=== PATIENT | female | born 1935 | race Caucasian/White ===

== ENCOUNTER → 2017-02-05 | Outpatient (CLI) | payer MEDICARE ==
[~2017-02-05] MED LIST: AMIT10TA6 PO; CITA10SO PO; ESTR0.3T PO; FAMO-119 PO; HYDR-3730 PO; LISI1TAB10 PO; LISI1TAB6 PO; NF-ESOM40C PO; SCR1T1 PO; SUCR1TAB36 PO
--- NOTE | 2017-02-06 09:18 | Diagnostic Imaging Report ---
EXAMINATION: Bilateral screening mammogram 2D views with tomosynthesis. The current study was also evaluated with a Computer Aided Detection (CAD) system. INDICATION: Screening. PERSONAL HISTORY: No current complaints stated on the questionnaire. COMPARISON: 02/28/2015. FINDINGS: The breasts are composed of heterogeneously dense parenchyma which may decrease mammographic sensitivity. Occasional benign-appearing calcifications are seen. Allowing for technique and positional differences, no suspicious change is seen. IMPRESSION: No significant change. ACR BI-RADS Category 2: Benign findings. Result letter will be mailed to the patient. Note: At least 10% of breast cancer is not imaged by mammography. Dictated by: Dictated on workstation # [id number]
== END ==
LOC: RAD 10:50
PROVIDERS: ATTEND Internal Medicine
DX: Z12.31 Encounter for screening mammogram for malignant neoplasm of breast (principal)

== ENCOUNTER → 2018-05-17 | Outpatient (CLI) | payer MEDICARE ==
[~2018-05-17] MED LIST changes: +HOLD METFORMIN - RECEIVED CONTRAST 20 ML VIAL IV SCH; +IOHEXOL 350 MG/ML 100 ML (OMNIPAQUE 350) VIAL IV ONE
[2018-05-17 16:42] LABS: CREATININE SERUM 1.11 MG/DL (0.60-1.30)
--- NOTE | 2018-05-17 17:53 | Diagnostic Imaging Report ---
PROCEDURE: CT neck soft tissue with contrast. TECHNIQUE: Multiple contiguous axial images were obtained through the neck after the administration of contrast. Auto Exposure Controls were utilized during the CT exam to meet ALARA standards for radiation dose reduction. INDICATION: Left neck mass. BB marker was placed over the area of concern. FINDINGS: Good opacification of the cervical vessels following IV contrast with mild calcification in the carotid bulbs. BB marker is placed over the left submandibular region. This does correlate with the left submandibular gland which is slightly larger than the right. There are no enhancing masses. No calculi are seen. The duct is not distended. There is enhancement in a rather uniform fashion. Right submandibular gland is normal. The parotid glands appear normal bilaterally. No evidence of cervical chain adenopathy of pathologic size. The strap muscles appear normal with good preservation of tissue planes throughout the neck. The parapharyngeal tissue planes appear normal. Nasopharynx and oropharynx are normal. Hypopharynx is normal. There are bilateral thyroid nodules. There are some mild inflammatory changes noted of the paranasal sinuses. IMPRESSION: 1. The BB marker on the left correlates with enlarged left submandibular gland. No masses or calculi are seen. 2. Bilateral thyroid nodules. Dictated by: Dictated on workstation # [id number]
== END ==
LOC: RAD 16:12
PROVIDERS: ATTEND Otolaryngology Otolaryngology/Facial Plastic Surgery
DX: E04.2 Nontoxic multinodular goiter (principal); K11.8 Other diseases of salivary glands
CPT/HCPCS: 36415; 70491; 82565; 84520

== ENCOUNTER 2018-07-15 14:46 | Inpatient (IN) | payer MEDICARE ==
[2018-07-15] VITALS (7 sets, daily range): BP systolic 97–147; BP diastolic 42–98
[~2018-07-15] VITALS: Ht 160 cm; Wt 74.0 kg
[~2018-07-15 14:46] MED LIST changes: -HOLD METFORMIN - RECEIVED CONTRAST 20 ML VIAL IV SCH; -IOHEXOL 350 MG/ML 100 ML (OMNIPAQUE 350) VIAL IV ONE
[2018-07-15] MEDS ORDERED: ASPIRIN 81 MG CHEW (CHILDREN'S ASA) PO ONE (15:00)
[2018-07-15] MEDS ORDERED: NS IV 500 ML 500 ML ONE (15:01)
[2018-07-15 15:15] LABS: BASOPHILS # (AUTO) 0.1 10^3/uL (0.0-0.1); BASOPHILS % (AUTO) 1 % (0-10); EOSINOPHILS # (AUTO) 0.5 10^3/uL (0.0-0.3); EOSINOPHILS % (AUTO) 6 % (0-10); HEMATOCRIT 47 % (35-52); LYMPHOCYTES # (AUTO) 3.1 X 10^3 (1.0-4.0); LYMPHOCYTES % (AUTO) 35 % (12-44); MEAN CORPUSCULAR HEMOGLOBIN 32 PG (25-34); MEAN CORPUSCULAR HGB CONC 34 G/DL (32-36); MEAN CORPUSCULAR VOLUME 92 FL (80-99); MEAN PLATELET VOLUME 9.1 FL (7.4-10.4); MONOCYTES # (AUTO) 0.8 X 10^3 (0.0-1.0); MONOCYTES % (AUTO) 9 % (0-12); NEUTROPHILS # (AUTO) 4.3 X 10^3 (1.8-7.8); NEUTROPHILS % (AUTO) 49 % (42-75); PLATELET COUNT 250 10^3/uL (130-400); RED CELL DISTRIBUTION WIDTH 13.4 % (10.0-14.5); WHITE BLOOD COUNT 8.7 10^3/uL (4.3-11.0)
[2018-07-15] MEDS ORDERED: DILTIAZEM IV FOR DRIP 125 MG in NS (IVPB) 100 ML IV SCH (15:15)
[2018-07-15] MEDS ORDERED: DILTIAZEM 25 MG/5 ML INJ (CARDIZEM) VIAL IVP ONE (15:15)
--- NOTE | 2018-07-15 15:22 | Diagnostic Imaging Report ---
PATIENT HISTORY: Chest tightness, nausea. TECHNIQUE: Single frontal view of the chest. COMPARISON: None. FINDINGS: The lung volumes are normal. No focal consolidation is seen. No large pleural effusion or pneumothorax is seen. The cardiomediastinal silhouette is normal in size and contour. No acute osseous abnormality is seen. IMPRESSION: No acute pulmonary abnormality seen. Dictated by: Dictated on workstation # [id number]
[2018-07-15] MEDS ORDERED: NS IV 500 ML 500 ML IV ONE (15:29)
--- NOTE | 2018-07-15 15:29 | ED Cardiac General ---
History of Present Illness General Chief Complaint: Cardiac/General Problems Stated Complaint: CHEST TIGHTNESS;NAUSEA;WEAKNESS Source: patient Exam Limitations: no limitations History of Present Illness Date Seen by Provider: July 15, 2018 Time Seen by Provider: 15:05 Initial Comments Here with report of chest tightness and anxious feeling with fast heart rate. Onset early this morning. Blood pressures were okay at home but they did note that her heart rate was in the 120s. A little short of breath but no sweating, nausea, vomiting or other problems. Timing/Duration: 12 hours Severity: mild Location: central (tightness) Activities at Onset: rest Prior CP/Workup: no prior chest pain Modifying Factors: improves with rest NTG SL FRAME TRIMMER: No ASA po FRAME TRIMMER: No Associated Systoms: Chest Pain; No Cough, No Diaphoresis, No Fever/Chills, No Nausea/Vomiting, No Shortness of Air, No Weakness Allergies and Home Medications Allergies Coded Allergies: No Known Drug Allergies (Unverified , 01/02/16) Home Medications Lisinopril/Hydrochlorothiazide 1 Each Tablet, 0.5 EACH PO DAILY, (Reported) Patient Home Medication List Home Medication List Reviewed: Yes Review of Systems Review of Systems Constitutional: see HPI; No chills, No fever EENTM: No Symptoms Reported Respiratory: See HPI Cardiovascular: See HPI, Irregular Heart Rate, Palpitations; Denies Syncope Gastrointestinal: No Symptoms Reported Genitourinary: No Symptoms Reported Musculoskeletal: no symptoms reported All Other Systems Reviewed Negative Unless Noted: Yes Past Vjpopka-Nhyldn-Dvrqeb Hx Past Med/Social Hx: Reviewed Nursing Past Med/Soc Hx Patient Social History Alcohol Use: Regular Use Number of Drinks Today: 0 Recreational Drug Use: No Smoking Status: Former Smoker Former Smoker, Quit: Jan 01, 1985 Recent Hopitalizations: No Immunizations Up To Date Date of Pneumonia Vaccine: Jan 07, 2012 Seasonal Allergies Seasonal Allergies: Yes Past Medical History Surgeries: Yes Adenoidectomy, Gallbladder, Hysterectomy, Tonsillectomy Respiratory: No Cardiac: Yes Hypertension Neurological: No 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 Sexually Transmitted Disease: No HIV/AIDS: No Genitourinary: No Gastrointestinal: Yes (HIATAL HERNIA) Gastroesophageal Reflux Musculoskeletal: Yes Chronic Back Pain Endocrine: No Loss of Vision: Bilateral Hearing Impairment: Denies Cancer: No Psychosocial: Yes (MILD) Anxiety Integumentary: No Blood Disorders: Yes (ANEMIA) Adverse Reaction/Blood Tranf: No Family Medical History Reviewed Nursing Family Hx No Pertinent Family Hx Physical Exam Vital Signs Vital Signs - First Documented 07/15/18 07/15/18 14:50 15:57 Temp 98.0 Pulse 128 Resp 18 B/P (MAP) 170/120 (137) Pulse Ox 94 O2 Delivery Room Air Capillary Refill : Less Than 3 Seconds Height, Weight, BMI Height: 5'4.00" Weight: 171lbs. 5.0oz. 77.706505va; 29.4 BMI Method: General Appearance: No Apparent Distress, WD/WN HEENT: PERRL/EOMI, Pharynx Normal Neck: Non Tender, Supple Respiratory: Lungs Clear, Normal Breath Sounds Cardiovascular: Irregularly Irregular, Tachycardia Gastrointestinal: Non Tender, Soft Extremity: Normal Range of Motion, Non Tender Neurologic/Psychiatric: Alert, Oriented x3 Skin: Normal Color, Warm/Dry Progress/Results/Core Measures Results/Orders Lab Results Laboratory Tests Test 07/15/18 15:05 07/15/18 15:25 Range/Units White Blood Count 8.7 4.3-11.0 10^3/uL Red Blood Count 5.07 4.35-5.85 10^6/uL Hemoglobin 16.0 11.5-16.0 G/DL Hematocrit 47 35-52 % Mean Corpuscular Volume 92 80-99 FL Mean Corpuscular Hemoglobin 32 25-34 PG Mean Corpuscular Hemoglobin Concent 34 32-36 G/DL Red Cell Distribution Width 13.4 10.0-14.5 % Platelet Count 250 130-400 10^3/uL Mean Platelet Volume 9.1 7.4-10.4 FL Neutrophils (%) (Auto) 49 42-75 % Lymphocytes (%) (Auto) 35 12-44 % Monocytes (%) (Auto) 9 0-12 % Eosinophils (%) (Auto) 6 0-10 % Basophils (%) (Auto) 1 0-10 % Neutrophils # (Auto) 4.3 1.8-7.8 X 10^3 Lymphocytes # (Auto) 3.1 1.0-4.0 X 10^3 Monocytes # (Auto) 0.8 0.0-1.0 X 10^3 Eosinophils # (Auto) 0.5 H 0.0-0.3 10^3/uL Basophils # (Auto) 0.1 0.0-0.1 10^3/uL Prothrombin Time 13.1 12.2-14.7 SEC INR Comment 1.0 0.8-1.4 Activated Partial Thromboplast Time 30 24-35 SEC Sodium Level 141 135-145 MMOL/L Potassium Level 4.2 3.6-5.0 MMOL/L Chloride Level 107 98-107 MMOL/L Carbon Dioxide Level 23 21-32 MMOL/L Anion Gap 11 5-14 MMOL/L Blood Urea Nitrogen 21 H 7-18 MG/DL Creatinine 1.21 0.60-1.30 MG/DL Estimat Glomerular Filtration Rate 42 BUN/Creatinine Ratio 17 Glucose Level 125 H 70-105 MG/DL Calcium Level 10.3 H 8.5-10.1 MG/DL Corrected Calcium 10.2 H 8.5-10.1 MG/DL Magnesium Level 2.3 1.8-2.4 MG/DL Total Bilirubin 0.3 0.1-1.0 MG/DL Aspartate Amino Transf (AST/SGOT) 25 5-34 U/L Alanine Aminotransferase (ALT/SGPT) 16 0-55 U/L Alkaline Phosphatase 47 40-136 U/L Myoglobin 54.8 10.0-92.0 NG/ML Troponin I < 0.028 <0.028 NG/ML B-Type Natriuretic Peptide 83.2 <100.0 PG/ML Total Protein 7.4 6.4-8.2 GM/DL Albumin 4.1 3.2-4.5 GM/DL Lipase 41 8-78 U/L TSH [place] Testing 2.70 0.35-4.94 UIU/ML Urine Color YELLOW Urine Clarity CLEAR Urine pH 7 5-9 Urine Specific [place] 1.010 L 1.016-1.022 Urine Protein NEGATIVE NEGATIVE Urine Glucose (UA) NEGATIVE NEGATIVE Urine Ketones NEGATIVE NEGATIVE Urine Nitrite NEGATIVE NEGATIVE Urine Bilirubin NEGATIVE NEGATIVE Urine Urobilinogen NORMAL NORMAL MG/DL Urine Leukocyte Esterase 3+ H NEGATIVE Urine RBC (Auto) NEGATIVE NEGATIVE Urine RBC NONE /HPF Urine WBC 5-10 H /HPF Urine Squamous Epithelial Cells 2-5 /HPF Urine Crystals NONE /LPF Urine Bacteria TRACE /HPF Urine Casts NONE /LPF Urine Mucus NEGATIVE /LPF Urine Culture Indicated NO My Orders Orders - MILAGRO HERMOSILLO MD Ns (Ivpb) (Sodium C... W/Diltiazem Iv Fo (07/15/18 15:15) Ed Iv/Invasive Line Start (07/15/18 15:29) Ns Iv 500 Ml (Sodium Chloride 0.9%) (07/15/18 15:29) Ua Culture If Indicated (07/15/18 15:37) Thyroid Analyzer (07/15/18 15:41) Apixaban Tablet (Eliquis Tablet) (07/15/18 16:00) Medications Given in ED Current Medications Medications Dose Ordered Sig/John Route Start Time Stop Time Status Last Admin Dose Admin Apixaban 5 mg ONCE ONCE PO 07/15/18 16:00 07/15/18 16:01 DC 07/15/18 15:57 5 MG Aspirin 324 mg ONCE ONCE PO 07/15/18 15:00 07/15/18 15:01 DC 07/15/18 15:06 324 MG Sodium Chloride 500 ml @ ud STK-MED ONCE .ROUTE 07/15/18 15:01 07/15/18 15:06 DC 07/15/18 15:08 999 MLS/HR Vital Signs/I&O 07/15/18 07/15/18 14:50 15:57 Temp 98.0 98.0 Pulse 128 95 Resp 18 18 B/P (MAP) 170/120 (137) 131/84 Pulse Ox 94 O2 Delivery Room Air Progress Progress Note : Progress Note Seen and evaluated. IV, labs, EKG, chest x-ray, ASA 324 mg by mouth ordered for chest pain. Patient noted to be in atrial fibrillation with rapid ventricular response. Cardizem bolus of 10 mg IV and drip at 10 mg an hour initiated as well as normal saline 500 mL bolus. Monitor patient. 1541: Patient's heart rate was dropping down to the low 100s. He discussed the case with Dr. Hutchins. We will initiate Cardizem drip at 5 mg an hour without a bolus and initiate Eliquis 5 mg by mouth now and continue twice a day. He accepts patient for admission, inpatient status. Patient to go to ICU. 1635: I did review labs with the patient and family. Heart rate down to 80s and 90s currently she states she feels much better without chest pain. Patient does have ongoing shingles to the right flank. We will continue her previously prescribed valacyclovir and gabapentin. Initial ECG Impression Date: July 15, 2018 Initial ECG Impression Time: 14:59 Initial ECG Rate: 112 Initial ECG Rhythm: A Fib/Flutter Initial ECG Impression: Atrial Fibrillation w/RVR Comment Atrial fibrillation with rapid ventricular response. Normal axis. No evidence of ST elevation SC. No previous available for comparison. Interpreted by me. Diagnostic Imaging Diagonstic Imaging: Xray Plain Films/CT/US/NM/MRI: chest Comments [facility], [place] NAME: [facility] REC#: [id number] PT STATUS: REG ER : 1935 PHYSICIAN: YARED AVERY APRN ADMIT DATE: 07/15/18/ER Draft Date of Exam:07/15/18 CHEST 1 VIEW, AP/PA ONLY PATIENT HISTORY: Chest tightness, nausea. TECHNIQUE: Single frontal view of the chest. COMPARISON: None. FINDINGS: The lung volumes are normal. No focal consolidation is seen. No large pleural effusion or pneumothorax is seen. The cardiomediastinal silhouette is normal in size and contour. No acute osseous abnormality is seen. IMPRESSION: No acute pulmonary abnormality seen. Dictated on workstation # [id number] Dict: 07/15/18 1518 Trans: 07/15/18 1521 [id number] Interpreted by: JAGRUTI ANDREWS MD Electronically signed by: Departure Communication (Admissions) Time/Spoke to Admitting Phy: 15:41 Impression Primary Impression: Atrial fibrillation with RVR Disposition: ADMITTED INPATIENT Condition: Stable Admissions Decision to Admit Reason: Admit from ER (General) Decision to Admit/Date: July 15, 2018 Time/Decision to Admit Time: 15:41 Departure-Patient Inst. Referrals: MARKY MCLEOD MD (PCP/Family) Primary Care Physician MILAGRO HERMOSILLO MD July 15, 2018 15:29
[2018-07-15 15:30] LABS: PROTHROMBIN TIME PATIENT 13.1 SEC (12.2-14.7)
[2018-07-15 15:43] LABS: ALANINE AMINOTRANSFERASE 16 U/L (0-55); ALBUMIN 4.1 GM/DL (3.2-4.5); ALKALINE PHOSPHATASE 47 U/L (40-136); BILIRUBIN,TOTAL 0.3 MG/DL (0.1-1.0); BUN/CREATININE RATIO 17; CALCIUM 10.3 MG/DL (8.5-10.1); CARBON DIOXIDE 23 MMOL/L (21-32); CHLORIDE 107 MMOL/L (98-107); CREATININE SERUM 1.21 MG/DL (0.60-1.30); GFR ESTIMATED 42; GLUCOSE 125 MG/DL (70-105); LIPASE 41 U/L (8-78); MAGNESIUM 2.3 MG/DL (1.8-2.4); POTASSIUM 4.2 MMOL/L (3.6-5.0); SODIUM 141 MMOL/L (135-145); TOTAL PROTEIN 7.4 GM/DL (6.4-8.2)
[2018-07-15 15:44] LABS: BILIRUBIN,URINE NEGATIVE (NEGATIVE); CLARITY,URINE CLEAR; COLOR,URINE YELLOW; GLUCOSE, URINE (UA) NEGATIVE (NEGATIVE); KETONES,URINE NEGATIVE (NEGATIVE); LEUKOCYTE ESTERASE ,URINE 3+ (NEGATIVE); NITRITE,URINE NEGATIVE (NEGATIVE); PH,URINE 7 (5-9); PROTEIN,URINE NEGATIVE (NEGATIVE); UROBILINOGEN,URINE NORMAL (NORMAL)
[2018-07-15 15:55] LABS: BACTERIA,URINE TRACE /HPF
[2018-07-15] MEDS ORDERED: APIXABAN 5 MG (ELIQUIS) TABLET PO ONE (16:00)
--- NOTE | 2018-07-15 17:39 | Cardiology History & Physical ---
HPI-Cardiology Cardiology H&P Date of Admission 07/15/18 Primary Care Physician Maicol Serrano MD Attending Physician Janis Hutchins MD, MA [facility] Consulting Physician DEBBIE CC: Palpitations, chest discomfort HPI: 83 yo woman who had a relatively sudden onset of a feeling of palp and chest discomfort and malaise this afternoon. [place] short of breath. Chest discomfort was mild, vague, across chest, nonradiating, w/o any aggravating or relieving factors, not experienced before, associated with a feeling or palp and shortness of breath. No syncope or leg swelling Review of Systems-Cardiology Review of Systems Constitutional: malaise, tiredness; No weight loss, No weight gain Eyes: No vision change Ears/Nose/Throat: No ear discharge, No nasal drainage, No recent hearing loss Respiratory: As described under HPI Cardiovascular: As described under HPI Gastrointestinal: No constipation, No diarrhea, No nausea, No vomiting Genitourinary: No dysuria, No urine frequency changes Musculoskeletal: back pain (chronic), other (dermatomal discomfort along the R lower back, side of and front of R abdominal wall (previously diagnosed as shingles)) Skin: No rash, No ulcerations Psychiatric/Neurological: No seizure, No focal weakness, No syncope Hematologic: No bleeding abnormalities All Other Systems Reviewed Negative Unless Noted: Yes KXG-Xyhehn-Yrhrwc Hx Patient Social History Alcohol Use: Regular Use Recreational Drug Use: No Smoking Status: Former Smoker Recent Foreign Travel: No Recent Infectious Disease Expo: No Hospitalization with Isolation: Denies Immunizations Up To Date Date of Pneumonia Vaccine: Jan 07, 2012 Past Medical History PMH As described under Assessment. Family Medical History Family Medical History: No fam h/o early CAD or SCD Allergies and Home Medications Allergies Coded Allergies: No Known Drug Allergies (Unverified , 01/02/16) Home Medications Lisinopril/Hydrochlorothiazide 1 Each Tablet, 0.5 EACH PO DAILY, (Reported) Patient Home Medication List Home Medication List Reviewed: Yes Physical Exam-Cardiology Physical Exam Vital Signs/I&O 07/15/18 07/15/18 07/15/18 07/15/18 14:50 15:57 16:47 17:10 Temp 98.0 98.0 98.0 Pulse 128 95 87 Resp 18 18 18 B/P (MAP) 170/120 (137) 131/84 116/74 (88) Pulse Ox 94 96 96 O2 Delivery Room Air Room Air 07/15/18 07/15/18 07/15/18 07/15/18 17:15 17:38 18:00 18:27 Temp 98.0 Pulse 56 53 53 53 Resp 13 13 B/P (MAP) 133/76 (95) 136/70 (92) 136/70 Pulse Ox 99 95 95 O2 Delivery Room Air Room Air Room Air Capillary Refill : Less Than 3 Seconds Constitutional: AAO x 3, well-developed, well-nourished HEENT: EOMI, hearing is well preserved; No xanthelasmas are seen Neck: carotid pulses are 2 + bilaterally, with good upstrokes Respiratory: No accessory muscle use; lungs clear to percussion, lungs clear to auscultation Cardiovascular: regular rate-rhythm, S1 and S2, systolic murmur (soft LUIS MIGUEL at card base) Gastrointestinal: No tender; soft; No guarding, No rebound; audible bowel sounds Extremities: No cyanosis, No significant edema Neurologic/Psychiatric: oriented x 3, grossly intact Skin: No rash on exposed areas, No ulcerations on exposed areas Data Review Labs Laboratory Tests 07/15/18 15:05: White Blood Count 8.7, Red Blood Count 5.07, Hemoglobin 16.0, Hematocrit 47, Mean Corpuscular Volume 92, Mean Corpuscular Hemoglobin 32, Mean Corpuscular Hemoglobin Concent 34, Red Cell Distribution Width 13.4, Platelet Count 250, Mean Platelet Volume 9.1, Neutrophils (%) (Auto) 49, Lymphocytes (%) (Auto) 35, Monocytes (%) (Auto) 9, Eosinophils (%) (Auto) 6, Basophils (%) (Auto) 1, Neutrophils # (Auto) 4.3, Lymphocytes # (Auto) 3.1, Monocytes # (Auto) 0.8, Eosinophils # (Auto) 0.5H, Basophils # (Auto) 0.1, Prothrombin Time 13.1, INR Comment 1.0, Activated Partial Thromboplast Time 30, Sodium Level 141, Potassium Level 4.2, Chloride Level 107, Carbon Dioxide Level 23, Anion Gap 11, Blood Urea Nitrogen 21H, Creatinine 1.21, Estimat Glomerular Filtration Rate 42, BUN/Creatinine Ratio 17, Glucose Level 125H, Calcium Level 10.3H, Corrected Calcium 10.2H, Magnesium Level 2.3, Total Bilirubin 0.3, Aspartate Amino Transf (AST/SGOT) 25, Alanine Aminotransferase (ALT/SGPT) 16, Alkaline Phosphatase 47, Myoglobin 54.8, Troponin I < 0.028, B-Type Natriuretic Peptide 83.2, Total Protein 7.4, Albumin 4.1, Lipase 41, TSH [place] Testing 2.70 07/15/18 15:25: Urine Color YELLOW, Urine Clarity CLEAR, Urine pH 7, Urine Specific [place] 1.010L, Urine Protein NEGATIVE, Urine Glucose (UA) NEGATIVE, Urine Ketones NEGATIVE, Urine Nitrite NEGATIVE, Urine Bilirubin NEGATIVE, Urine Urobilinogen NORMAL, Urine Leukocyte Esterase 3+H, Urine RBC (Auto) NEGATIVE, Urine RBC NONE, Urine WBC 5-10H, Urine Squamous Epithelial Cells 2-5, Urine Crystals NONE, Urine Bacteria TRACE, Urine Casts NONE, Urine Mucus NEGATIVE, Urine Culture Indicated NO Laboratory Tests 07/15/18 15:05 A/P-Cardiology Assessment/Admission Diagnosis Chest discomfort, probably due to A Fib. No evidence of ACS, so far PAF, first diagnosed today, 07/15/18. Currently in NSR No evidence of myocardial ischemia or infarction and LVEF 80% on MPI of 03/20/15 Echo of 03/22/15 shows LVEF 60%, trivial MR & TR, no valvular stenosis, PASP 30- 35 mmHg Hypertension - controlled Quit smoking in 1980s H/o GERD, followed by Dr Serrano and Dr Lackey H/o shingles involving the R lower abdominal wall UTI Admission Status: Observation Discussion and Recomendations * Long-acting dilt for vent rate control * Apixaban for stroke prophylaxis * Echo to eval for any structural heart disease * Hospitalist consult to manage UTI * Keep on tele * I discussed her CV issues with her and her Clinical Quality Measures AMI/AHF: ASA po Prior to arrival: JANIS Barrios MD FACP FAC CCDS July 15, 2018 17:39
[2018-07-15] MEDS ORDERED: NS IV 1000 ML 1,000 ML IV SCH (17:45)
[2018-07-15] MEDS ORDERED: DILTIAZEM 240 MG (CARDIZEM CD) CAP PO NR (17:45)
[2018-07-15] MEDS ORDERED: DILTIAZEM 125 MG/NS 100 ML IV SCH ×2 (17:45)
[2018-07-15] MEDS ORDERED: CATHETER FLUSH 10 ML SYR IV PRN (17:45)
--- NOTE | 2018-07-15 18:40 | NUR ---
1730 WHEN PT ASSISTED TO BED FROM ED CART, PT NOTED HEART RATE AT 144 THEN AT 62 AND REGULAR SINUS RHYTHM. EKG OBTAINED AND NOTED AT SINUS RHYTHM. DR BORJAS NOTIFIED AND NEW ORDERS RECEIVED TO GIVE CARDIZEM CD 240 MG PO NOW AND DAILY AND STOP CARDIZEM DRIP IN 1 HOUR. ORDERS READ BACK AND ENTERED.
[2018-07-15] MEDS ORDERED: ACETAMINOPHEN 325 MG TABLET PO PRN (19:30)
[2018-07-15] MEDS: GABAPENTIN 100 MG (NEURONTIN) CAP PO SCH (20:58)
[2018-07-15] MEDS: APIXABAN 5 MG (ELIQUIS) TABLET PO SCH (20:59)
[2018-07-15] MEDS: VALACYCLOVIR 500 MG TAB (VALTREX) PO SCH (20:59)
--- OUTSIDE RECORDS SUMMARY | 2018-07-15 22:37 | XMS REPORT | Continuity of Care Document ---
Author Author [facility] Organization [facility] Address Unknown Phone Unavailable Care Team Providers Care Spark Plug Assembler Name Role Phone MARKY MCLEOD MD PP Insurance Providers Payer Name Policy Number Subscriber Name Relationship [employer] [facility] Supp [id number] Lea Huggins Self / Same As Patient Wps Medicare [id number] Lea Huggins Self / Same As Patient Advance Directives Directive Response Recorded Date Advance Directives Y 12/08/12 10:00am Health Care Power of Sales And Events Coordinator N 12/08/12 10:00am Organ Donor Y 12/08/12 10:00am Problems No Known Problems or Medical conditions. Allergies, Adverse Reactions, Alerts Allergen Type Severity Reaction Last Updated No Known Drug Allergies 12/08/12 Medications Medication Dose Units Route Sig Qty Days Sucralfate (Carafate) 1 Gm PO QID 14 Citalopram Hydrobromide (Citalopram) 10 Mg PO DAILY Esomeprazole Magnesium (Nexium) 1 Cap PO DAILY 30 Estrogens Conjugated (Premarin Tab) 0.3 Mg PO DAILY HCTZ/Lisinopril (Lisinopril-Hctz 10-12.5 Mg Tab) 1 Each PO DAILY Immunizations Name Given Type Date of Pneumonia Vaccine 01/07/12 H Response Recorded Date/Time Status not known Unknown Results No Known Relevant Diagnostic Tests, Laboratory Data and/or Discharge Summary.
--- OUTSIDE RECORDS SUMMARY | 2018-07-15 22:38 | XMS REPORT | Continuity of Care Document ---
Author Organization Unknown Address Unknown Allergies Active Description Code Type Severity Reaction Onset Reported/Identified Relationship to Patient Clinical Status Yes No Known Drug Allergies [id number] Drug Allergy Unknown N/A 01/02/2016 Medications There is no data. Problems Date Dx Coded Attending Type Code Diagnosis Diagnosed By 01/22/1615 SHANI YATES, MARKY Khan Ot M54.5 LOW BACK PAIN 12/08/2012 GO MENDEZ MD Ot 285.9 ANEMIA NOS 12/08/2012 GO MENDEZ MD Ot 455.0 INT HEMORRHOID W/O COMPL 12/08/2012 GO MENDEZ MD Ot 455.3 EXT HEMORRHOID W/O COMPL 12/08/2012 GO MENDEZ MD Ot 530.11 REFLUX ESOPHAGITIS 12/08/2012 GO MENDEZ MD Ot 535.50 UNSP GASTRITIS GASTRODUODENITIS W/O ME 12/08/2012 GO MENDEZ MD Ot 562.10 DIVERTICULOSIS COLON (W/O MENT OF HEMORR 12/08/2012 GO MENDEZ MD Ot V76.51 SCREEN MAL NEOP-COLON 02/28/2015 Ot V76.12 02/28/2015 GO MENDEZ MD Ot V72.84 02/28/2015 NETTE YATES, REINALDO Kasper Ot 388.30 02/28/2015 NETTE YATES, REINALDO Kasper Ot 473.9 03/20/2015 Ot V76.12 03/20/2015 GO MENDEZ MD Ot V72.84 03/20/2015 NETTE YATES, REINALDO Kasper Ot 388.30 03/20/2015 NETTE YATES, REINALDO P Ot 473.9 03/20/2015 JONATHAN PADILLA APRN Ot Z12.31 04/11/2015 SUAD YATES FACC, ALI FACP CCDS Ot I10 04/11/2015 SUAD YATES FACC, ALI FACP CCDS Ot R06.02 04/11/2015 SUAD YATES FACC, ALI FACP CCDS Ot R07.89 04/11/2015 Ot I10 04/11/2015 Ot R06.02 04/11/2015 Ot R07.89 04/20/2015 SUAD YATES [facility], ALI FACP CCDS Ot I10 04/20/2015 SUAD YATES [facility], ALI FACP CCDS Ot R06.02 04/20/2015 SUAD YATES [facility], ALI FACP CCDS Ot R07.89 04/23/2015 Ot I10 04/23/2015 Ot R06.02 04/23/2015 Ot R07.89 06/15/2015 GO MENDEZ MD, Ot K21.9 GASTRO-ESOPHAGEAL REFLUX DISEASE WITHOUT 06/15/2015 GO MENDEZ MD Ot Z01.818 ENCOUNTER FOR OTHER PREPROCEDURAL EXAMIN 06/18/2015 GO MENDEZ MD, Ot K21.9 GASTRO-ESOPHAGEAL REFLUX DISEASE WITHOUT 06/18/2015 GO MENDEZ MD, Ot Z01.818 ENCOUNTER FOR OTHER PREPROCEDURAL EXAMIN 06/27/2015 GO MENDEZ MD Ot K21.0 GASTRO-ESOPHAGEAL REFLUX DISEASE WITH ES 06/27/2015 GO MENDEZ MD Ot K29.70 GASTRITIS, UNSPECIFIED, WITHOUT BLEEDING 06/27/2015 GO MENDEZ MD Ot K44.9 DIAPHRAGMATIC HERNIA WITHOUT OBSTRUCTION 06/28/2015 GO MENDEZ MD Ot K21.0 GASTRO-ESOPHAGEAL REFLUX DISEASE WITH ES 06/28/2015 GO MENDEZ MD Ot K29.70 GASTRITIS, UNSPECIFIED, WITHOUT BLEEDING 06/28/2015 GO MENDEZ MD, Ot K44.9 DIAPHRAGMATIC HERNIA WITHOUT OBSTRUCTION 07/03/2015 GO MENDEZ MD Ot K21.0 GASTRO-ESOPHAGEAL REFLUX DISEASE WITH ES 07/03/2015 GO MENDEZ MD Ot K29.70 GASTRITIS, UNSPECIFIED, WITHOUT BLEEDING 07/03/2015 GO MENDEZ MD Ot K44.9 DIAPHRAGMATIC HERNIA WITHOUT OBSTRUCTION 11/08/2015 GENNARO ADAMS FOOTWEAR SALES ASSOCIATE Ot I10 ESSENTIAL (PRIMARY) HYPERTENSION 11/08/2015 GENNARO ADAMS FOOTWEAR SALES ASSOCIATE Ot R00.2 PALPITATIONS 11/08/2015 GENNARO ADAMS FO[employer]WEAR SALES ASSOCIATE Ot I10 ESSENTIAL (PRIMARY) HYPERTENSION 11/08/2015 BAIMA, GENNARO L FOOTWEAR SALES ASSOCIATE Ot R00.2 PALPITATIONS 11/08/2015 BAIGENNARO MIKE L FOOTWEAR SALES ASSOCIATE Ot I10 ESSENTIAL (PRIMARY) HYPERTENSION 11/08/2015 BAIGENNARO MIKE L FOOTWEAR SALES ASSOCIATE Ot R00.2 PALPITATIONS 11/14/2015 Ot V76.12 OTH SCREEN MAMMO- MALIGN NEOPLASM OF LIZBETH 11/14/2015 ANDREA YATES, GO Ot V72.84 EXAM PRE-OPERATIVE NOS 11/14/2015 NETTE YATES, REINALDO Kasper Ot 388.30 TINNITUS NOS 11/14/2015 NETTE YATES, REINALDO Kasper Ot 473.9 CHRONIC SINUSITIS NOS 11/14/2015 JONATHAN PADILLA APRN Ot Z12.31 ENCNTR SCREEN MAMMOGRAM FOR MALIGNANT NE 11/14/2015 SUAD YATES FAC, ALI FACP CCDS Ot I10 ESSENTIAL (PRIMARY) HYPERTENSION 11/14/2015 SUAD YATES FAC, ALI FACP CCDS Ot R06.02 SHORTNESS OF BREATH 11/14/2015 SUAD YATES FAC, ALI FACP CCDS Ot R07.89 OTHER CHEST PAIN 11/14/2015 Ot I10 ESSENTIAL (PRIMARY) HYPERTENSION 11/14/2015 Ot R06.02 SHORTNESS OF BREATH 11/14/2015 Ot R07.89 OTHER CHEST PAIN 11/14/2015 GENNARO ADAMS [employer] SALES ASSOCIATE Ot I10 ESSENTIAL (PRIMARY) HYPERTENSION 11/14/2015 GENNARO ADAMS L FOOTWEAR SALES ASSOCIATE Ot R00.2 PALPITATIONS 11/23/2015 SHANI YATES, MARKY Khan Ot M54.5 LOW BACK PAIN 11/26/2015 MARKY MCLEOD MD Ot M54.5 LOW BACK PAIN 11/26/2015 MARKY MCLEOD MD Ot M54.5 LOW BACK PAIN 11/27/2015 MARKY MCLEOD MD Ot M54.5 LOW BACK PAIN 12/17/2015 GENNARO ADAMS L [employer]WEAR SALES ASSOCIATE Ot I10 ESSENTIAL (PRIMARY) HYPERTENSION 12/17/2015 GENNARO ADAMS L FOOTWEAR SALES ASSOCIATE Ot R00.2 PALPITATIONS 12/19/2015 KALA LEE Ot R10.11 RIGHT UPPER QUADRANT PAIN 12/19/2015 KALA LEE Ot R10.12 LEFT UPPER QUADRANT PAIN 12/19/2015 KALA LEE Ot R14.0 ABDOMINAL DISTENSION (GASEOUS) 12/20/2015 GENNARO ADAMS L FOOTWEAR SALES ASSOCIATE Ot I10 ESSENTIAL (PRIMARY) HYPERTENSION 12/20/2015 GENNARO ADAMS FO[employer]WEAR SALES ASSOCIATE Ot R00.2 PALPITATIONS 01/02/2016 GO MENDEZ MD Ot K80.20 CALCULUS OF GALLBLADDER W/O CHOLECYSTITI 01/02/2016 GO MENDEZ MD Ot Z01.812 ENCOUNTER FOR PREPROCEDURAL LABORATORY E 01/02/2016 GO MENDEZ MD Ot Z11.2 ENCOUNTER FOR SCREENING FOR OTHER BACTER 01/03/2016 GO MENDEZ MD Ot K80.20 CALCULUS OF GALLBLADDER W/O CHOLECYSTITI 01/03/2016 GO MENDEZ MD Ot Z01.812 ENCOUNTER FOR PREPROCEDURAL LABORATORY E 01/03/2016 GO MENDEZ MD Ot Z11.2 ENCOUNTER FOR SCREENING FOR OTHER BACTER 01/03/2016 GO MENDEZ MD Ot 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 01/08/2016 KALA LEE L Ot R10.11 RIGHT UPPER QUADRANT PAIN 01/08/2016 KALA LEE L Ot R10.12 LEFT UPPER QUADRANT PAIN 01/08/2016 HOANG LEEEN L Ot R14.0 ABDOMINAL DISTENSION (GASEOUS) 01/11/2016 KALA LEE L Ot R10.11 RIGHT UPPER QUADRANT PAIN 01/11/2016 HOANG LEEEN L Ot R10.12 LEFT UPPER QUADRANT PAIN 01/11/2016 HOANG LEEEN L Ot R14.0 ABDOMINAL DISTENSION (GASEOUS) 01/11/2016 MARKY MCLEOD MD Ot M54.5 LOW BACK PAIN 01/29/2016 GO MENDEZ MD Ot 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 02/05/2016 GENNARO ADAMS FO[employer]WEAR SALES ASSOCIATE Ot I10 ESSENTIAL (PRIMARY) HYPERTENSION 02/05/2016 GENNARO ADAMS FOOTWEAR SALES ASSOCIATE Ot R00.2 PALPITATIONS 01/28/2017 MARKY MCLEOD MD Ot Z12.31 ENCNTR SCREEN MAMMOGRAM FOR MALIGNANT NE 11/12/2017 MARKY MCLEOD MD Ot Z12.31 ENCNTR SCREEN MAMMOGRAM FOR MALIGNANT NE 05/17/2018 GO MENDEZ MD Ot V72.84 EXAM PRE-OPERATIVE NOS 05/17/2018 NETTE YATES, REINALDO Kasper Ot 388.30 TINNITUS NOS 05/17/2018 REINALDO PERDUE MD Ot 473.9 CHRONIC SINUSITIS NOS 05/17/2018 JONATHAN PADILLA APRN Ot Z12.31 ENCNTR SCREEN MAMMOGRAM FOR MALIGNANT NE 05/17/2018 SUAD YATES [facility] FACP CCDS Ot I10 ESSENTIAL (PRIMARY) HYPERTENSION 05/17/2018 SUAD YATES [facility], ALI FACP CCDS Ot R06.02 SHORTNESS OF BREATH 05/17/2018 SUAD YATES [facility], ALI FACP CCDS Ot R07.89 OTHER CHEST PAIN 05/17/2018 Ot I10 ESSENTIAL (PRIMARY) HYPERTENSION 05/17/2018 Ot R06.02 SHORTNESS OF BREATH 05/17/2018 Ot R07.89 OTHER CHEST PAIN 05/17/2018 HOANG LEEEN L Ot R10.11 RIGHT UPPER QUADRANT PAIN 05/17/2018 KALA LEE L Ot R10.12 LEFT UPPER QUADRANT PAIN 05/17/2018 HOANG LEEEN L Ot R14.0 ABDOMINAL DISTENSION (GASEOUS) 05/17/2018 GENNARO ADAMS [employer] SALES ASSOCIATE Ot I10 ESSENTIAL (PRIMARY) HYPERTENSION 05/17/2018 GENNARO ADAMS FO[employer]WE[employer] SALES ASSOCIATE Ot R00.2 PALPITATIONS 05/17/2018 SHANI YATES, MARKY Khan Ot Z12.31 ENCNTR SCREEN MAMMOGRAM FOR MALIGNANT NE 05/19/2018 REINALDO PERDUE MD Ot E04.2 NONTOXIC MULTINODULAR GOITER 05/19/2018 REINALDO PERDUE MD Ot K11.8 OTHER DISEASES OF SALIVARY GLANDS 06/11/2018 REINALDO PERDUE MD Ot E04.2 NONTOXIC MULTINODULAR GOITER 06/11/2018 REINALDO PERDUE MD Ot K11.8 OTHER DISEASES OF SALIVARY GLANDS 06/16/2018 REINALDO PERDUE MD Ot E04.2 NONTOXIC MULTINODULAR GOITER 06/16/2018 REINALDO PERDUE MD Ot K11.8 OTHER DISEASES OF SALIVARY GLANDS Procedures There is no data. Results Test Result Range Complete blood count (CBC) with automated white blood cell (WBC) differential - 01/02/16 13:05 Blood leukocytes automated count (number/volume) 9.0 10*3/uL 4.3-11.0 Blood erythrocytes automated count (number/volume) 4.44 10*6/uL 4.35-5.85 Venous blood hemoglobin measurement (mass/volume) 11.6 g/dL 11.5-16.0 Blood hematocrit (volume fraction) 36 % 35-52 Automated erythrocyte mean corpuscular volume 81 [foz_us] 80-99 Automated erythrocyte mean corpuscular hemoglobin (mass per erythrocyte) 26 pg 25-34 Automated erythrocyte mean corpuscular hemoglobin concentration measurement (mass/volume) 32 g/dL 32-36 Automated erythrocyte distribution width ratio 16.4 % 10.0- 14.5 Automated blood platelet count (count/volume) 288 10*3/uL 130-400 Automated blood platelet mean volume measurement 8.8 [foz_us] 7.4-10.4 Automated blood neutrophils/100 leukocytes 39 % 42-75 Automated blood lymphocytes/100 leukocytes 30 % 12-44 Blood monocytes/100 leukocytes 7 % 0-12 Automated blood eosinophils/100 leukocytes 23 % 0-10 Automated blood basophils/100 leukocytes 1 % 0-10 Blood neutrophils automated count (number/volume) 3.5 10*3 1.8-7.8 Blood lymphocytes automated count (number/volume) 2.7 10*3 1.0-4.0 Blood monocytes automated count (number/volume) 0.6 10*3 0.0- 1.0 Automated eosinophil count 2.1 10*3/uL 0.0-0.3 Automated blood basophil count (count/volume) 0.1 10*3/uL 0.0-0.1 Blood manual differential performed detection - 01/02/16 13:05 Blood monocytes/100 leukocytes 6 % NRG Manual blood segmented neutrophils/100 leukocytes 36 % NRG Blood band neutrophils/100 leukocytes 0 % NRG Manual blood lymphocytes/100 leukocytes 34 % NRG Manual eosinophils/100 leukocytes in nose 24 % NRG Manual blood basophils/100 leukocytes 0 % NRG Blood anisocytosis detection by light microscopy SLIGHT NRG Blood ovalocytes detection by light microscopy SLIGHT NRG Methicillin resistant Staphylococcus aureus (MRSA) screening culture - 01/02/16 13:05 Methicillin resistant Staphylococcus aureus (MRSA) screening culture NEG NRG [id number] - 05/17/18 16:22 Serum or plasma urea nitrogen measurement (mass/volume) 23 mg/dL 7-18 Serum or plasma creatinine measurement (mass/volume) 1.11 mg/dL 0.60-1.30 Serum or plasma urea nitrogen/creatinine mass ratio 21 NRG Serum or plasma creatinine measurement with calculation of estimated glomerular filtration rate 47 NRG Complete blood count (CBC) with automated white blood cell (WBC) differential - 07/15/18 15:05 Blood leukocytes automated count (number/volume) 8.7 10*3/uL 4.3-11.0 Blood erythrocytes automated count (number/volume) 5.07 10*6/uL 4.35-5.85 Venous blood hemoglobin measurement (mass/volume) 16.0 g/dL 11.5-16.0 Blood hematocrit (volume fraction) 47 % 35-52 Automated erythrocyte mean corpuscular volume 92 [foz_us] 80-99 Automated erythrocyte mean corpuscular hemoglobin (mass per erythrocyte) 32 pg 25-34 Automated erythrocyte mean corpuscular hemoglobin concentration measurement (mass/volume) 34 g/dL 32-36 Automated erythrocyte distribution width ratio 13.4 % 10.0- 14.5 Automated blood platelet count (count/volume) 250 10*3/uL 130-400 Automated blood platelet mean volume measurement 9.1 [foz_us] 7.4-10.4 Automated blood neutrophils/100 leukocytes 49 % 42-75 Automated blood lymphocytes/100 leukocytes 35 % 12-44 Blood monocytes/100 leukocytes 9 % 0-12 Automated blood eosinophils/100 leukocytes 6 % 0-10 Automated blood basophils/100 leukocytes 1 % 0-10 Blood neutrophils automated count (number/volume) 4.3 10*3 1.8-7.8 Blood lymphocytes automated count (number/volume) 3.1 10*3 1.0-4.0 Blood monocytes automated count (number/volume) 0.8 10*3 0.0- 1.0 Automated eosinophil count 0.5 10*3/uL 0.0-0.3 Automated blood basophil count (count/volume) 0.1 10*3/uL 0.0-0.1 PT panel in platelet poor plasma by coagulation assay - 07/15/18 15:05 Prothrombin time (PT) in platelet poor plasma by coagulation assay 13.1 s 12.2-14.7 INR in platelet poor plasma or blood by coagulation assay 1.0 0.8-1.4 Activated partial thromboplastin time (aPTT) in platelet poor plasma bycoagulation assay - 07/15/18 15:05 Activated partial thromboplastin time (aPTT) in platelet poor plasma bycoagulation assay 30 s 24-35 Comprehensive metabolic panel - 07/15/18 15:05 Serum or plasma sodium measurement (moles/volume) 141 mmol/L 135-145 Serum or plasma potassium measurement (moles/volume) 4.2 mmol/L 3.6-5.0 Serum or plasma chloride measurement (moles/volume) 107 mmol/L 98-107 Carbon dioxide 23 mmol/L 21-32 Serum or plasma anion gap determination (moles/volume) 11 mmol/L 5-14 Serum or plasma urea nitrogen measurement (mass/volume) 21 mg/dL 7-18 Serum or plasma creatinine measurement (mass/volume) 1.21 mg/dL 0.60-1.30 Serum or plasma urea nitrogen/creatinine mass ratio 17 NRG Serum or plasma creatinine measurement with calculation of estimated glomerular filtration rate 42 NRG Serum or plasma glucose measurement (mass/volume) 125 mg/dL 70-105 Serum or plasma calcium measurement (mass/volume) 10.3 mg/dL 8.5-10.1 Serum or plasma total bilirubin measurement (mass/volume) 0.3 mg/dL 0.1-1.0 Serum or plasma alkaline phosphatase measurement (enzymatic activity/volume) 47 U/L 40-136 Serum or plasma aspartate aminotransferase measurement (enzymatic activity/volume) 25 U/L 5-34 Serum or plasma alanine aminotransferase measurement (enzymatic activity/volume) 16 U/L 0-55 Serum or plasma protein measurement (mass/volume) 7.4 g/dL 6.4-8.2 Serum or plasma albumin measurement (mass/volume) 4.1 g/dL 3.2-4.5 CALCIUM CORRECTED 10.2 mg/dL 8.5-10.1 Magnesium - 07/15/18 15:05 Magnesium 2.3 mg/dL 1.8-2.4 Serum or plasma troponin i.cardiac measurement (mass/volume) - 07/15/18 15:05 Serum or plasma troponin i.cardiac measurement (mass/volume) < ng/mL <0.028 Myoglobin, serum - 07/15/18 15:05 Myoglobin, serum 54.8 ng/mL 10.0-92.0 Lipase - 07/15/18 15:05 Lipase 41 U/L 8-78 Serum or plasma lithium measurement (moles/volume) - 07/15/18 15:05 BNP level 83.2 pg/mL <100.0 Serum or plasma thyrotropin measurement by detection limit <=0.05 miu/l (units/volume) - 07/15/18 15:05 Serum or plasma thyrotropin measurement by detection limit <=0.05 miu/l (units/volume) 2.70 u[iU]/mL 0.35-4.94 Complete urinalysis with reflex to culture - 07/15/18 15:25 Urine color determination YELLOW NRG Urine clarity determination CLEAR NRG Urine pH measurement by test strip 7 5-9 Specific gravity of urine by test strip 1.010 1.016-1.022 Urine protein assay by test strip, semi-quantitative NEGATIVE NEGATIVE Urine glucose detection by automated test strip NEGATIVE NEGATIVE Erythrocytes detection in urine sediment by light microscopy NEGATIVE NEGATIVE Urine ketones detection by automated test strip NEGATIVE NEGATIVE Urine nitrite detection by test strip NEGATIVE NEGATIVE Urine total bilirubin detection by test strip NEGATIVE NEGATIVE Urine urobilinogen measurement by automated test strip (mass/volume) NORMAL NORMAL Urine leukocyte esterase detection by dipstick 3+ NEGATIVE Automated urine sediment erythrocyte count by microscopy (number/high power field) NONE NRG Automated urine sediment leukocyte count by microscopy (number/high power field) [HPF] NRG Bacteria detection in urine sediment by light microscopy TRACE NRG Squamous epithelial cells detection in urine sediment by light microscopy 2-5 NRG Crystals detection in urine sediment by light microscopy NONE NRG Casts detection in urine sediment by light microscopy NONE NRG Mucus detection in urine sediment by light microscopy NEGATIVE NRG Complete urinalysis with reflex to culture NO NRG Encounters ACCT No. Visit Date/Time Discharge Status Pt. Type Provider Facility Loc./Unit Complaint [id number] 05/17/2018 16:12:00 05/17/2018 23:59:59 CLS Outpatient REINALDO PERDUE MD [facility] RAD LT NECK MASS [id number] 02/05/2017 10:50:00 02/05/2017 23:59:59 CLS Outpatient MARKY MCLEOD MD [facility] RAD SCREENING [id number] 02/06/2016 09:00:00 02/06/2016 23:59:59 CLS Preadmit GENNARO ADAMS [facility] CARD PALPITATIONS,HTN [id number] 11/26/2015 06:49:00 02/05/2016 00:01:00 DIS Outpatient ANGIE GENNAROHER Alli THORPE [facility] CARD PALPITATIONS,HTN [id number] 12/21/2015 09:56:00 01/11/2016 16:16:00 DIS Outpatient MARKY MCLEOD MD [facility] REHAB LOW BACK PAIN [id number] 01/03/2016 12:24:00 01/03/2016 17:40:00 DIS Outpatient GO MENDEZ MD [facility] GALLSTONES [id number] 01/02/2016 12:42:00 01/02/2016 15:10:00 DIS Outpatient GO MENDEZ MD [facility] PREOP GALLSTONES [id number] 12/17/2015 07:59:00 12/17/2015 23:59:59 CLS Outpatient KALA LEE [facility] RAD BUQ PAIN,BLOATING [id number] 11/23/2015 11:18:00 11/23/2015 17:00:00 DIS Outpatient MARKY MCLEOD MD [facility] REHAB LOW BACK PAIN [id number] 06/27/2015 08:10:00 06/27/2015 11:40:00 DIS Outpatient GO MENDEZ MD [facility] REFLUX [id number] 06/15/2015 05:40:00 06/15/2015 09:39:00 DIS Outpatient GO MENDEZ MD [facility] PREOP REFLEX [id number] 03/20/2015 11:32:00 03/20/2015 23:59:59 CLS Outpatient SUAD YATES FACCCHUCK FACP CCDS [facility] CARD CHEST DISCOMFORT,SHORTNESS OF BREATH [id number] 02/28/2015 09:21:00 02/28/2015 23:59:59 CLS Outpatient JONATHAN PADILLA APRN [facility] RAD SCREENING [id number] 05/16/2013 11:22:00 05/16/2013 23:59:59 CLS Outpatient REINALDO PERDUE MD [facility] RAD PULSATILE TINNITUS [id number] 12/08/2012 09:39:00 12/08/2012 13:30:00 DIS Outpatient GO MENDEZ MD [facility] SDC HISTORY ANEMIA [id number] 12/01/2012 07:15:00 12/01/2012 23:59:59 CLS Outpatient GO MENDEZ MD [facility] PREOP HISTORY ANEMIA [id number] 07/15/2018 15:18:00 Document Registration [id number] 03/22/2015 11:36:00 Document Registration [id number] 01/19/2012 10:47:00 Document Registration
--- OUTSIDE RECORDS SUMMARY | 2018-07-15 23:32 | XMS REPORT | Continuity of Care Document ---
Author Organization Unknown Address Unknown Allergies Active Description Code Type Severity Reaction Onset Reported/Identified Relationship to Patient Clinical Status Yes No Known Drug Allergies [id number] Drug Allergy Unknown N/A 01/02/2016 Medications There [...] R06.02 04/11/2015 Ot R07.89 04/20/2015 SUAD YATES [facility], ALI FACP CCDS Ot I10 04/20/2015 SUAD YATES [facility], [facility] FACP CCDS Ot R06.02 04/20/2015 SUAD YATES [facility], [facility] FACP CCDS Ot R07.89 04/23/2015 [...] Ot K44.9 DIAPHRAGMATIC HERNIA WITHOUT OBSTRUCTION 06/28/2015 OG MENDEZ MD Ot K21.0 GASTRO-ESOPHAGEAL REFLUX DISEASE WITH ES 06/28/2015 GO MENDEZ MD Ot K29.70 GASTRITIS, UNSPECIFIED, WITHOUT BLEEDING 06/28/2015 GO MENDEZ MD, Ot K44.9 DIAPHRAGMATIC HERNIA WITHOUT OBSTRUCTION 07/03/2015 GO MENDEZ MD Ot K21.0 GASTRO-ESOPHAGEAL REFLUX DISEASE WITH ES 07/03/2015 GO MENDEZ MD Ot K29.70 GASTRITIS, UNSPECIFIED, WITHOUT BLEEDING 07/03/2015 GO MENDEZ MD Ot K44.9 DIAPHRAGMATIC HERNIA WITHOUT OBSTRUCTION 11/08/2015 GENNARO ADAMS ENVIRONMENTAL REMEDIATION ENGINEER Ot I10 ESSENTIAL (PRIMARY) HYPERTENSION 11/08/2015 GENNARO ADAMS ENVIRONMENTAL REMEDIATION ENGINEER Ot R00.2 PALPITATIONS 11/08/2015 GENNARO ADAMS ENVIRONMENTAL REMEDIATION ENGINEER Ot I10 ESSENTIAL (PRIMARY) HYPERTENSION 11/08/2015 BAIMA, GENNARO L ENVIRONMENTAL REMEDIATION ENGINEER Ot R00.2 PALPITATIONS 11/08/2015 BAIGENNARO MIKE L ENVIRONMENTAL REMEDIATION ENGINEER Ot I10 ESSENTIAL (PRIMARY) HYPERTENSION 11/08/2015 BAIGENNARO MIKE L ENVIRONMENTAL REMEDIATION ENGINEER Ot R00.2 PALPITATIONS 11/14/2015 Ot V76.12 OTH [...] R07.89 OTHER CHEST PAIN 11/14/2015 GENNARO ADAMS ENVIRONMENTAL REMEDIATION ENGINEER Ot I10 ESSENTIAL (PRIMARY) HYPERTENSION 11/14/2015 GENNARO ADAMS L ENVIRONMENTAL REMEDIATION ENGINEER Ot R00.2 PALPITATIONS 11/23/2015 SHANI YATES, MARKY Khan Ot M54.5 LOW BACK PAIN 11/26/2015 MARKY MCLEOD MD Ot M54.5 LOW BACK PAIN 11/26/2015 MARKY MCLEOD MD Ot M54.5 LOW BACK PAIN 11/27/2015 MARKY MCLEOD MD Ot M54.5 LOW BACK PAIN 12/17/2015 GENNARO ADAMS L ENVIRONMENTAL REMEDIATION ENGINEER Ot I10 ESSENTIAL (PRIMARY) HYPERTENSION 12/17/2015 GENNARO ADAMS L ENVIRONMENTAL REMEDIATION ENGINEER Ot R00.2 PALPITATIONS 12/19/2015 KALA LEE Ot R10.11 RIGHT UPPER QUADRANT PAIN 12/19/2015 KALA LEE Ot R10.12 LEFT UPPER QUADRANT PAIN 12/19/2015 KALA ELE Ot R14.0 ABDOMINAL DISTENSION (GASEOUS) 12/20/2015 GENNARO ADAMS L ENVIRONMENTAL REMEDIATION ENGINEER Ot I10 ESSENTIAL (PRIMARY) HYPERTENSION 12/20/2015 GENNARO ADAMS ENVIRONMENTAL REMEDIATION ENGINEER Ot R00.2 PALPITATIONS 01/02/2016 GO MENDEZ MD [...] GALLBLADDER W CHRONIC CHOLEC 02/05/2016 GENNARO ADAMS ENVIRONMENTAL REMEDIATION ENGINEER Ot I10 ESSENTIAL (PRIMARY) HYPERTENSION 02/05/2016 GENNARO ADAMS ENVIRONMENTAL REMEDIATION ENGINEER Ot R00.2 PALPITATIONS 01/28/2017 MARKY MCLEOD MD [...] MAMMOGRAM FOR MALIGNANT NE 05/17/2018 SUAD YATES [facility], [facility] FACP CCDS Ot I10 ESSENTIAL (PRIMARY) HYPERTENSION 05/17/2018 SUAD YATES [facility], [facility] FACP CCDS Ot R06.02 SHORTNESS OF BREATH 05/17/2018 SUAD YATES [facility], [facility] FACP CCDS Ot R07.89 OTHER CHEST PAIN 05/17/2018 Ot I10 ESSENTIAL (PRIMARY) HYPERTENSION 05/17/2018 Ot R06.02 SHORTNESS OF BREATH 05/17/2018 Ot R07.89 OTHER CHEST PAIN 05/17/2018 HOANG LEEEN L Ot R10.11 RIGHT UPPER QUADRANT PAIN 05/17/2018 KALA LEE L Ot R10.12 LEFT UPPER QUADRANT PAIN 05/17/2018 HOANG LEEEN L Ot R14.0 ABDOMINAL DISTENSION (GASEOUS) 05/17/2018 GENNARO ADAMS ENVIRONMENTAL REMEDIATION ENGINEER Ot I10 ESSENTIAL (PRIMARY) HYPERTENSION 05/17/2018 GENNARO ADAMS ENVIRONMENTAL REMEDIATION ENGINEER Ot R00.2 PALPITATIONS 05/17/2018 SHANI YATES, MARKY [...] Staphylococcus aureus (MRSA) screening culture NEG NRG [id number] - 05/17/18 16:22 Serum or plasma urea [...] Status Pt. Type Provider Facility Loc./Unit Complaint [id number] 05/17/2018 16:12:00 05/17/2018 23:59:59 CLS Outpatient REINALDO PERDUE MD [facility] RAD LT NECK MASS [id number] 02/05/2017 10:50:00 02/05/2017 23:59:59 CLS Outpatient MARKY MCLEOD MD [facility] RAD SCREENING [id number] 02/06/2016 09:00:00 02/06/2016 23:59:59 CLS Preadmit GENNARO ADAMS [facility] CARD PALPITATIONS,HTN [id number] 11/26/2015 06:49:00 02/05/2016 00:01:00 DIS Outpatient ANGIE GENNAROHER Alli THORPE [facility] CARD PALPITATIONS,HTN [id number] 12/21/2015 09:56:00 01/11/2016 16:16:00 DIS Outpatient MARKY MCLEOD MD [facility] REHAB LOW BACK PAIN [id number] 01/03/2016 12:24:00 01/03/2016 17:40:00 DIS Outpatient GO MENDEZ MD [facility] GALLSTONES [id number] 01/02/2016 12:42:00 01/02/2016 15:10:00 DIS Outpatient GO MENDEZ MD [facility] PREOP GALLSTONES [id number] 12/17/2015 07:59:00 12/17/2015 23:59:59 CLS Outpatient KALA LEE [facility] RAD BUQ PAIN,BLOATING [id number] 11/23/2015 11:18:00 11/23/2015 17:00:00 DIS Outpatient MARKY MCLEOD MD [facility] REHAB LOW BACK PAIN [id number] 06/27/2015 08:10:00 06/27/2015 11:40:00 DIS Outpatient GO MENDEZ MD [facility] REFLUX [id number] 06/15/2015 05:40:00 06/15/2015 09:39:00 DIS Outpatient GO MENDEZ MD [facility] PREOP REFLEX [id number] 03/20/2015 11:32:00 03/20/2015 23:59:59 CLS Outpatient SUAD YATES FACCCHUCK FACP CCDS [facility] CARD CHEST DISCOMFORT,SHORTNESS OF BREATH [id number] 02/28/2015 09:21:00 02/28/2015 23:59:59 CLS Outpatient JONATHAN PADILLA APRN [facility] RAD SCREENING [id number] 05/16/2013 11:22:00 05/16/2013 23:59:59 CLS Outpatient REINALDO PERDUE MD [facility] RAD PULSATILE TINNITUS [id number] 12/08/2012 09:39:00 12/08/2012 13:30:00 DIS Outpatient GO MENDEZ MD [facility] SDC HISTORY ANEMIA [id number] 12/01/2012 07:15:00 12/01/2012 23:59:59 CLS Outpatient GO MENDEZ MD [facility] PREOP HISTORY ANEMIA [id number] 07/15/2018 15:18:00 Document Registration [id number] 03/22/2015 11:36:00 Document Registration [id number] 01/19/2012 10:47:00 Document Registration
[2018-07-16] VITALS (15 sets, daily range): BP systolic 103–160; BP diastolic 46–88
[2018-07-16] MEDS ORDERED: IBUPROFEN 600 MG (MOTRIN) TAB PO ONE ×2 (00:49→01:00)
[2018-07-16 04:12] LABS: BASOPHILS % (AUTO) 0 % (0-10); EOSINOPHILS # (AUTO) 0.6 10^3/uL (0.0-0.3); EOSINOPHILS % (AUTO) 6 % (0-10); HEMATOCRIT 40 % (35-52); HEMOGLOBIN 13.7 G/DL (11.5-16.0); LYMPHOCYTES # (AUTO) 3.7 X 10^3 (1.0-4.0); LYMPHOCYTES % (AUTO) 39 % (12-44); MEAN CORPUSCULAR HEMOGLOBIN 32 PG (25-34); MEAN CORPUSCULAR HGB CONC 34 G/DL (32-36); MEAN CORPUSCULAR VOLUME 94 FL (80-99); MEAN PLATELET VOLUME 9.2 FL (7.4-10.4); MONOCYTES # (AUTO) 0.8 X 10^3 (0.0-1.0); MONOCYTES % (AUTO) 9 % (0-12); NEUTROPHILS # (AUTO) 4.2 X 10^3 (1.8-7.8); NEUTROPHILS % (AUTO) 45 % (42-75); PLATELET COUNT 210 10^3/uL (130-400); WHITE BLOOD COUNT 9.3 10^3/uL (4.3-11.0)
[2018-07-16 04:24] LABS: ALBUMIN 3.3 GM/DL (3.2-4.5); BILIRUBIN,TOTAL 0.5 MG/DL (0.1-1.0); CALCIUM 8.8 MG/DL (8.5-10.1); CREATININE SERUM 0.97 MG/DL (0.60-1.30); TOTAL PROTEIN 5.7 GM/DL (6.4-8.2)
[2018-07-16 04:25] LABS: CHOLESTEROL 165 MG/DL (< 200); HDL CHOLESTEROL 39 MG/DL (40-60); TRIGLYCERIDES 98 MG/DL (<150); VLDL CHOLESTEROL 20 MG/DL (5-40)
[2018-07-16] MEDS ORDERED: VALA1000 PO (08:58)
[2018-07-16] MEDS ORDERED: HYDR-3812 PO (08:58)
[2018-07-16] MEDS ORDERED: GABA-486 PO (08:58)
[2018-07-16] MEDS ORDERED: DILTIAZEM 240 MG (CARDIZEM CD) CAP PO SCH (09:00)
[2018-07-16] MEDS ORDERED: MAGN400T39 PO (09:01)
[2018-07-16] MEDS ORDERED: MULT1TAB69 PO (09:01)
[2018-07-16] MEDS ORDERED: LIDO15CR9 TP (09:05)
--- NOTE | 2018-07-16 09:05 | NUR ---
WENT OVER THE EXT MED HX WITH THE PATIENT AND SHE LISTED HER OTC MEDICATIONS.
--- NOTE | 2018-07-16 09:29 | Progress Note-Cardiology ---
Cardiology SOAP Progress Note Subjective: No cp or palp or syncope or shortness of breath or urinary symptoms Objective: I&O/Vital Signs 07/15/18 07/15/18 07/15/18 07/15/18 22:00 23:00 23:54 23:55 Temp 97.3 Pulse 45 43 Resp 15 13 B/P (MAP) 115/42 (66) 97/46 (63) Pulse Ox 95 92 96 O2 Delivery Room Air Room Air Room Air Room Air 07/16/18 07/16/18 07/16/18 07/16/18 00:00 01:00 01:00 02:00 Pulse 41 43 43 42 Resp 13 12 20 B/P (MAP) 103/46 (65) 115/53 (73) 113/51 (71) Pulse Ox 94 94 95 O2 Delivery Room Air Room Air Room Air 07/16/18 07/16/18 07/16/18 07/16/18 03:00 03:55 03:55 04:00 Temp 97.3 Pulse 43 43 Resp 14 13 B/P (MAP) 122/49 (73) 106/49 (68) Pulse Ox 93 97 93 O2 Delivery Room Air Room Air Room Air 07/16/18 07/16/18 07/16/18 07/16/18 05:00 06:00 07:00 07:12 Pulse 40 50 43 42 Resp 11 16 12 B/P (MAP) 115/84 (94) 126/70 (88) 138/60 (86) Pulse Ox 95 94 94 O2 Delivery Room Air Room Air Room Air 07/16/18 07/16/18 07/16/18 08:00 08:20 08:25 Temp 96.4 Pulse 53 Resp 9 B/P (MAP) 138/58 (84) Pulse Ox 96 97 O2 Delivery Room Air Room Air 07/16/18 00:00 Intake Total 780 ml Output Total 450 ml Balance 330 ml Weight (Pounds): 163 Weight (Ounces): 2.0 Weight (Calculated Kilograms): 73.690723 Constitutional: AAO x 3, well-developed, well-nourished Respiratory: No accessory muscle use; lungs clear to percussion, lungs clear to auscultation Cardiovascular: regular rate-rhythm, S1 and S2, systolic murmur (soft LUIS MIGUEL at card base) Gastrointestional: No tender; soft; No guarding, No rebound; audible bowel sounds Extremities: No cyanosis, No significant edema Neurologic/Psychiatric: oriented x 3, grossly intact Skin: No rash on exposed areas, No ulcerations on exposed areas Results/Procedures: Labs Laboratory Tests 07/15/18 15:05: White Blood Count 8.7, Red Blood Count 5.07, Hemoglobin 16.0, Hematocrit 47, Mean Corpuscular Volume 92, Mean Corpuscular Hemoglobin 32, Mean Corpuscular Hemoglobin Concent 34, Red Cell Distribution Width 13.4, Platelet Count 250, Mean Platelet Volume 9.1, Neutrophils (%) (Auto) 49, Lymphocytes (%) (Auto) 35, Monocytes (%) (Auto) 9, Eosinophils (%) (Auto) 6, Basophils (%) (Auto) 1, Neutrophils # (Auto) 4.3, Lymphocytes # (Auto) 3.1, Monocytes # (Auto) 0.8, Eosinophils # (Auto) 0.5H, Basophils # (Auto) 0.1, Prothrombin Time 13.1, INR Comment 1.0, Activated Partial Thromboplast Time 30, Sodium Level 141, Potassium Level 4.2, Chloride Level 107, Carbon Dioxide Level 23, Anion Gap 11, Blood Urea Nitrogen 21H, Creatinine 1.21, Estimat Glomerular Filtration Rate 42, BUN/Creatinine Ratio 17, Glucose Level 125H, Calcium Level 10.3H, Corrected Calcium 10.2H, Magnesium Level 2.3, Total Bilirubin 0.3, Aspartate Amino Transf (AST/SGOT) 25, Alanine Aminotransferase (ALT/SGPT) 16, Alkaline Phosphatase 47, Myoglobin 54.8, Troponin I < 0.028, B-Type Natriuretic Peptide 83.2, Total Protein 7.4, Albumin 4.1, Lipase 41, TSH [place] Testing 2.70 07/15/18 15:25: Urine Color YELLOW, Urine Clarity CLEAR, Urine pH 7, Urine Specific [place] 1.010L, Urine Protein NEGATIVE, Urine Glucose (UA) NEGATIVE, Urine Ketones NEGATIVE, Urine Nitrite NEGATIVE, Urine Bilirubin NEGATIVE, Urine Urobilinogen NORMAL, Urine Leukocyte Esterase 3+H, Urine RBC (Auto) NEGATIVE, Urine RBC NONE, Urine WBC 5-10H, Urine Squamous Epithelial Cells 2-5, Urine Crystals NONE, Urine Bacteria TRACE, Urine Casts NONE, Urine Mucus NEGATIVE, Urine Culture Indicated NO 07/16/18 03:53: White Blood Count 9.3, Red Blood Count 4.31L, Hemoglobin 13.7, Hematocrit 40, Mean Corpuscular Volume 94, Mean Corpuscular Hemoglobin 32, Mean Corpuscular Hemoglobin Concent 34, Red Cell Distribution Width 13.0, Platelet Count 210, Mean Platelet Volume 9.2, Neutrophils (%) (Auto) 45, Lymphocytes (%) (Auto) 39, Monocytes (%) (Auto) 9, Eosinophils (%) (Auto) 6, Basophils (%) (Auto) 0, Neutrophils # (Auto) 4.2, Lymphocytes # (Auto) 3.7, Monocytes # (Auto) 0.8, Eosinophils # (Auto) 0.6H, Basophils # (Auto) 0.0, Sodium Level 140, Potassium Level 4.0, Chloride Level 110H, Carbon Dioxide Level 21, Anion Gap 9, Blood Urea Nitrogen 23H, Creatinine 0.97, Estimat Glomerular Filtration Rate 55, BUN/Creatinine Ratio 24, Glucose Level 96, Calcium Level 8.8, Corrected Calcium 9.4, Total Bilirubin 0.5, Aspartate Amino Transf (AST/SGOT) 19, Alanine Aminotransferase (ALT/SGPT) 14, Alkaline Phosphatase 35L, Total Protein 5.7L, Albumin 3.3, Triglycerides Level 98, Cholesterol Level 165, LDL Cholesterol Direct 113, VLDL Cholesterol 20, HDL Cholesterol 39L Laboratory Tests 07/15/18 15:05 07/16/18 03:53 A/P: Assessment: Chest discomfort, probably due to A Fib. No evidence of ACS PAF, first diagnosed today, 07/15/18. Currently in sinus levy (asymptomatic) No evidence of myocardial ischemia or infarction and LVEF 80% on MPI of 03/20/15 Echo of 03/22/15 shows LVEF 60%, trivial MR & TR, no valvular stenosis, PASP 30- 35 mmHg Hypertension - controlled Quit smoking in 1980s H/o GERD, followed by Dr Serrano and Dr Lackey H/o shingles involving the R lower abdominal wall Probable UTI for which Hospitalist consult has been requested Plan: * Long-acting dilt for vent rate control, but reduce dose because of asymptomatic, sinus levy * Apixaban for stroke prophylaxis * Hospitalist consult to manage UTI * Outpt f/u: cardiology and pcp * I spoke with her and her and answered CV-related questions Clinical Quality Measures AMI/AHF: ASA po Prior to arrival: CHUCK Barrios MD FACP [facility] July 16, 2018 09:29
[2018-07-16] MEDS ORDERED: DILTIAZEM 180 MG (CARDIZEM CD) CAP PO ONE (09:30)
[2018-07-16] MEDS ORDERED: DILTIAZEM 120 MG (CARDIZEM CD) CAP PO NR (09:30)
[2018-07-16] MEDS ORDERED: APIX5TAB PO (09:35)
[2018-07-16] MEDS ORDERED: DILT120C94 PO (09:35)
--- NOTE | 2018-07-16 09:36 | Discharge Inst-Cardiology ---
Discharge Inst-Cardiac Discharge Medications New Medications: Apixaban (Eliquis) 5 Mg Tablet 5 MG PO BID for 30 Days, #60 TAB 5 Refills Diltiazem HCl (Diltiazem 24Hr Cd) 120 Mg Cap.er.24h 120 MG PO DAILY for 30 Days, #30 CAP 5 Refills Continued Medications: Gabapentin (Gabapentin) 100 Mg Capsule 100 MG PO TID, CAP TAKE ONE CAPSULE BY MOUTH ONCE DAILY FOR DAY 1, THEN TAKE ONE CAPSULE TWICE DAILY ON DAY 2, THEN TAKE ONE CAPSULE BY MOUTH THREE TIMES 10 Day SUPPLY #27 FILLED 07-12-18 Hydrocodone/Acetaminophen (Hydrocodone-Acetamin 5-325 mg) 1 Each Tablet 1-2 TAB PO Q6H PRN for PAIN-MODERATE, TAB Lidocaine (Lidocaine) 15 Gm Cream..g. TP TID PRN for PAIN, TUBE 4% Lisinopril/Hydrochlorothiazide (Lisinopril-Hctz 20-25 mg Tab) 1 Each Tablet 0.5 TAB PO DAILY, TAB Magnesium Oxide (Magnesium) 400 Mg Tablet 400 MG PO DAILY, TAB Multivitamin (Multivitamins) 1 Each Tablet 1 TAB PO DAILY, TAB Valacyclovir HCl (Valacyclovir) 1,000 Mg Tablet 1000 MG PO TID for 10 Days, TAB 10 DAY SUPPLY FILLED 07-12-18 Patient Instructions Patient Instructions: F/u with Dr Hutchins and with Dr Serrano next week CHUCK HUTCHINS MD [facility] July 16, 2018 09:36
[2018-07-16] MEDS: VALACYCLOVIR 500 MG TAB (VALTREX) PO SCH (09:41)
[2018-07-16] MEDS: APIXABAN 5 MG (ELIQUIS) TABLET PO SCH (09:41)
[2018-07-16] MEDS: GABAPENTIN 100 MG (NEURONTIN) CAP PO SCH (09:41)
[2018-07-16] MEDS ORDERED: CEFD300C3 PO (10:50)
[2018-07-17] MEDS ORDERED: DILTIAZEM 120 MG (CARDIZEM CD) CAP PO SCH (09:00)
--- NOTE | 2018-07-20 14:52 | Physician Query-Final Dx ---
GEGE GRAHAM 07/20/18 1452: Final Diagnosis Give Final Diagnosis Please give Final Diagnosis CHUCK BORJAS MD [facility] 07/20/18 1609: Final Diagnosis Give Final Diagnosis Chest discomfort, probably due to A Fib. No evidence of ACS PAF, first diagnosed today, 07/15/18. Currently in sinus levy (asymptomatic) No evidence of myocardial ischemia or infarction and LVEF 80% on MPI of 03/20/15 Echo of 03/22/15 shows LVEF 60%, trivial MR & TR, no valvular stenosis, PASP 30- 35 mmHg Hypertension - controlled Quit smoking in 1980s H/o GERD, followed by Dr Serrano and Dr Lackey H/o shingles involving the R lower abdominal wall Probable UTI for which Hospitalist consult has been requested (for which I personally spoke with Dr Boyer who was the hospitalist that day) GEGE GRAHAM July 20, 2018 14:52 CHUCK BORJAS MD [facility] July 20, 2018 16:09
== END 2018-07-16 13:25 | disposition home or self-care (01) | DRG 309 ==
LOC: EDUNIT# 14:46 → ER 14:47 → ICU 15:41 → UNDOADMIN 15:41
PROVIDERS: ADMIT Internal Medicine Cardiovascular Disease; ATTEND Internal Medicine Cardiovascular Disease
DX: I48.0 Paroxysmal atrial fibrillation (principal); N39.0 Urinary tract infection, site not specified; I10 Essential (primary) hypertension; K21.9 Gastro-esophageal reflux disease without esophagitis; K44.9 Diaphragmatic hernia without obstruction or gangrene; F41.9 Anxiety disorder, unspecified; B02.9 Zoster without complications; Z87.891 Personal history of nicotine dependence
CPT/HCPCS: 36415; 71045; 80053; 80061; 81000; 83690; 83735; 83874; 83880; 84443; 84484; 85025; 85610; 85730; 87081; 93005; 93041; 93306

== ENCOUNTER → 2018-07-30 | Outpatient (CLI) | payer MEDICARE ==
[~2018-07-30] VITALS: Ht 160 cm; Wt 75.7 kg
[~2018-07-30] MED LIST changes: +APIX5TAB PO; +CEFD300C3 PO; +DILT120C94 PO; +GABA-486 PO; +HYDR-3812 PO; +LIDO15CR9 TP; +MAGN400T39 PO; +MULT1TAB69 PO; +REGADENOSON 0.4 MG/5 ML SYR (LEXISCAN) IV ONE; +VALA1000 PO
[2018-07-30] MEDS: CATHETER FLUSH 10 ML SYR IV PRN ×2 (07:42→08:48)
[2018-07-30 08:46] VITALS: BP 159/58
--- NOTE | 2018-07-30 13:21 | STRESS TEST ---
DATE OF SERVICE: 07/30/2018 RESTING AND POST REGADENOSON TECHNETIUM-99M TETROFOSMIN SPECT CT IMAGING ORDERING PHYSICIAN: Ruchi Hutson APRN PRIMARY PHYSICIAN: Dr. Serrano. CLINICAL DIAGNOSES: Hypertension, paroxysmal atrial fibrillation. Baseline images were carried out after injection of 10.29 mCi of technetium-99m Tetrofosmin. The electrocardiogram showed considerable baseline artifact. Rhythm was sinus during the study. Some sinus arrhythmia was seen. The patient tolerated the procedure well. She received 0.4 mg regadenoson and 32.5 mCi technetium-99m Tetrofosmin for stress imaging. Review of images at rest and following stress does not indicate any significant perfusion defects consistent with significant myocardial ischemia or infarction. Gated images show normal global left ventricular systolic function with normal regional wall motion. Left ventricular ejection fraction is calculated to be 81%. Left ventricular end diastolic volume is 54 mL. TID is absent (1.03). CONCLUSIONS: 1. No evidence of any significant myocardial ischemia or infarction on this study. 2. Normal regional wall motion. 3. Normal global left ventricular systolic function with a calculated ejection fraction of 81%. Job ID: [id number] DocumentID: [id number] Dictated Date: 07/30/2018 10:13:02 Paste Mixing Supervisor Date: 07/30/2018 13:21:28 Dictated By: CHUCK BORJAS MD, MA, FACP, FACC,
== END ==
LOC: CARD 07:15
PROVIDERS: ATTEND Nurse Practitioner Family
DX: I48.0 Paroxysmal atrial fibrillation (principal); I10 Essential (primary) hypertension; I34.0 Nonrheumatic mitral (valve) insufficiency; Z79.01 Long term (current) use of anticoagulants
CPT/HCPCS: 78452; 93017

== ENCOUNTER 2018-12-23 13:43 | Outpatient (CLI) | payer MEDICARE ==
[~2018-12-23 13:43] MED LIST changes: +DILT120C88 PO; -DILT120C94 PO; -LISI1TAB10 PO; +LISI1TAB26 PO; -REGADENOSON 0.4 MG/5 ML SYR (LEXISCAN) IV ONE
== END 2018-12-23 14:10 | disposition home or self-care (01) ==
LOC: SLEEP 13:43
PROVIDERS: ATTEND Otolaryngology Otolaryngology/Facial Plastic Surgery
DX: G47.33 Obstructive sleep apnea (adult) (pediatric) (principal); I48.91 Unspecified atrial fibrillation; G47.00 Insomnia, unspecified; C44.321 Squamous cell carcinoma of skin of nose

== ENCOUNTER → 2019-08-22 | Outpatient (CLI) | payer MEDICARE ==
[~2019-08-22] MED LIST changes: +ACHD5005 PO; -HYDR-3812 PO; +MULT-567 PO; -MULT1TAB69 PO; -VALA1000 PO; +VALA10007 PO
--- NOTE | 2019-08-22 15:06 | Diagnostic Imaging Report ---
INDICATION: Routine screening. COMPARISON is made with prior mammograms from 02/05/2017 and 02/28/2015. 2-D and 3-D bilateral screening mammography was performed with CAD. Both breasts remain heterogeneously dense, limiting the sensitivity of mammography. Circumscribed densities in both breasts appear stable. No dominant mass or malignant appearing microcalcifications are identified. Axillae are unremarkable. IMPRESSION: BI-RADS Category 2 No mammographic features suspicious for malignancy are identified. ACR BI-RADS Category 2: Benign findings. Result letter will be mailed to the patient. Note: At least 10% of breast cancer is not imaged by mammography. Dictated by: Dictated on workstation # [id number]
== END ==
LOC: RAD 09:40
PROVIDERS: ATTEND Internal Medicine
DX: Z12.31 Encounter for screening mammogram for malignant neoplasm of breast (principal)
CPT/HCPCS: 77063; 77067

== ENCOUNTER → 2019-11-18 | Outpatient (CLI) | payer MEDICARE ==
--- NOTE | 2019-11-18 16:55 | Diagnostic Imaging Report ---
CLINICAL INDICATION: Patient states she has chronic low back pain. No known injury. EXAM: MRI of the lumbar spine performed without IV contrast. Sagittal T2, sagittal T1, sagittal stir, axial T1, and axial T2. COMPARISON: MRI of the lumbar spine performed without IV contrast dated 09/02/2007. FINDINGS: There is no acute lumbar spine fracture or dislocation. The visualized portions of the distal thoracic spinal cord, conus medullaris, and cauda equina nerve roots are unremarkable. The conus medullaris tip is seen at the L1-L2 intervertebral level. There is progression of degenerative spurs involving the lumbar spine and facet arthropathy. There is no significant paraspinal soft tissue abnormality. L1-L2: There is no significant central spinal canal or neural foramen narrowing. L2-L3: There is development of minimal diffuse disc bulge with superimposed small disc herniation in left foraminal region. There is mild left neural foramen narrowing which has progressed in the interim. There is no significant central canal or right neural foramen narrowing. L3-L4: There is interval progression of diffuse disc bulge and moderate loss of disc space height and endplate irregularity which has progressed. There is moderate bilateral facet arthropathy. There is [id number]-pq-ultfwt right neural foramen narrowing and moderate left neural foramen narrowing which has progressed. There is mild central canal narrowing which has progressed. L4-L5: There is interval progression of a diffuse disc bulge and moderate loss of disc space height. There is disc spurs extending into the left foraminal region and small disc herniation extending into the right foraminal region. There is nbdtsxep-gk-nqqtbs left neural foramen narrowing which has minimally progressed and moderate right neural foramen narrowing which has slightly progressed. There is severe right facet arthropathy/hypertrophy and moderate left facet arthropathy. There is no significant central canal narrowing. L5-S1: There is a diffuse disc bulge with hypertrophic disc spurs extend into the left foraminal region which has slightly progressed. There is tacx-mr-woncfkdn loss of disc space height again noted. There is moderate bilateral facet arthropathy with slight hypertrophic changes on the left. There is no significant central canal narrowing. There is severe left neural foramen narrowing which has minimally progressed and no significant right neural foramen narrowing. There is no significant central canal narrowing. IMPRESSION: 1: There is interval progression of pmcnbgwj-ql-czqazf multilevel lumbar spine degenerative disease, as described above. Dictated by: Dictated on workstation # [id number]
== END ==
LOC: RAD 14:00
PROVIDERS: ATTEND Physician Assistant
DX: M51.17 Intervertebral disc disorders with radiculopathy, lumbosacral region (principal); M47.27 Other spondylosis with radiculopathy, lumbosacral region; M48.07 Spinal stenosis, lumbosacral region
CPT/HCPCS: 72148

== ENCOUNTER → 2020-05-30 | Outpatient (CLI) | payer MEDICARE ==
[~2020-05-30] MED LIST changes: -AMIT10TA6 PO; +AMT10T PO
--- NOTE | 2020-05-30 12:52 | Diagnostic Imaging Report ---
INDICATION: Back pain x approximately 2 months. TECHNIQUE: Two view chest at 12:11 PM. CORRELATION STUDY: 07/15/2018. FINDINGS: The heart size, mediastinal configuration, and pulmonary vasculature are within normal limits. Mild pectus excavatum. The lungs are clear with no consolidating infiltrate. There is no significant pleural effusion or pneumothorax. Mild accentuated degenerative changes of the thoracic spine. IMPRESSION: Generally stable chest demonstrating no acute abnormality. Dictated by: Dictated on workstation # [id number]
== END ==
LOC: RAD
DX: M54.6 Pain in thoracic spine (principal); M54.9 Dorsalgia, unspecified
CPT/HCPCS: 71046

== ENCOUNTER → 2020-10-05 | Outpatient (CLI) | payer MEDICARE ==
--- NOTE | 2020-10-05 17:02 | Diagnostic Imaging Report ---
INDICATION: Routine screening. COMPARISON: Prior mammogram from 08/22/2019 and told 02/05/2017. EXAMINATION: 2D and 3D bilateral screening mammography was performed with CAD. The current study was also evaluated with a Computer Aided Detection (CAD) system. FINDINGS: Both breasts are heterogeneously dense, limiting the sensitivity of mammography. The fibronodular parenchymal pattern appears stable. No spiculated mass or malignant-appearing microcalcifications are seen. Axillae are unremarkable. IMPRESSION: No mammographic features suspicious for malignancy are identified. ACR BI-RADS Category 2: Benign findings. Result letter will be mailed to the patient. Note: At least 10% of breast cancer is not imaged by mammography. Dictated by: Dictated on workstation # [id number]
--- NOTE | 2020-10-05 17:02 | Diagnostic Imaging Report ---
PROCEDURE: US Thyroid. TECHNIQUE: Multiple real-time grayscale images were obtained of the thyroid in various projections. INDICATION: Thyroid nodule. FINDINGS: The right lobe measures 4 x 1.5 x 1.8 cm. There is a solid nodule in the midportion measuring 1.2 x 1.3 x 1.2 cm. The outline is slightly lobulated. It is uniformly hypoechoic and hypervascular. It is relatively round. No calcifications are seen. There is a second smaller similar-appearing nodule measuring 7 x 8 x 6 mm. The left lobe measures 4 x 2 x 2.3 cm. There is a heterogeneous nodule measuring 2.4 x 2.1 x 1.3 cm with isoechoic lobulated appearance. No calcification. There is a second slightly smaller solid nodule in the left lobe with hypoechoic appearance measuring 2 x 1 x 1 cm. This is also slightly lobulated with otherwise smooth margin. No calcification. IMPRESSION: 1. Multinodular thyroid. The solid nodule on the right should be considered a TI-RADS 4, would consider fine-needle biopsy. 2. The 2.4 cm nodule in the left lobe should be considered TI-RADS 3. Dictated by: Dictated on workstation # [id number]
== END ==
LOC: RAD 14:34
PROVIDERS: ATTEND Nurse Practitioner Family
DX: Z12.31 Encounter for screening mammogram for malignant neoplasm of breast (principal); E04.2 Nontoxic multinodular goiter
CPT/HCPCS: 76536; 77063; 77067

== ENCOUNTER → 2020-10-15 | Outpatient (CLI) | payer MEDICARE ==
[~2020-10-15] VITALS: Ht 162.6 cm; Wt 78.6 kg
[~2020-10-15] MED LIST changes: +LIDOCAINE 1% INJ 20 ML 20 ML VIAL INJ ONE
--- NOTE | 2020-10-15 12:28 | Diagnostic Imaging Report ---
INDICATION: Left lobe thyroid nodule. Patient presents for ultrasound guided fine needle aspiration. Patient brought to the procedure and placed on table in the supine position. Ultrasound imaging of the left neck was performed to evaluate appropriate entry site. Left neck was then prepped and draped in usual sterile fashion. Small amount of 1% lidocaine was utilized for local anesthesia. A total of 4 passes were made into the dominant centrally necrotic nodule in the left lobe of thyroid, more anteriorly located. Utilizing 25-gauge needles and final needle aspiration technique. A single pass was made with a Rotex needle and Rotex biopsy was performed. The needles were removed. Hemostasis was obtained. Patient tolerated procedure well. IMPRESSION: Successful ultrasound-guided fine-needle aspiration and Rotex biopsy of dominant left lobe thyroid nodule. Pathology results are currently pending. Dictated by: Dictated on workstation # [id number]
--- NOTE | 2020-10-15 12:33 | Diagnostic Imaging Report ---
Indication: Right lobe thyroid nodule. Patient presents for ultrasound guided fine needle aspiration and biopsy. Patient brought to the procedure and placed on table supine position. Ultrasound imaging of the right neck was performed evaluating appropriate entry site. The right neck was then prepped and draped in usual sterile fashion. Small amount of 1% lidocaine was utilized for local anesthesia. A total of 4 passes were made into the dominant hypoechoic nodule right lobe thyroid utilizing 25-gauge needles and fine-needle aspiration technique. Single pass was made with a Rotex needle and Rotex biopsy was performed. Hemostasis was obtained. Patient tolerated procedure well. IMPRESSION: Successful ultrasound fine-needle aspiration and Rotex biopsy of dominant right lobe thyroid nodule. Pathology results are currently pending. Dictated by: Dictated on workstation # [id number]
== END ==
LOC: RAD 10:40
PROVIDERS: ATTEND Nurse Practitioner Family
DX: E04.1 Nontoxic single thyroid nodule (principal)
CPT/HCPCS: 10005; 10006

== ENCOUNTER → 2021-03-07 | Outpatient (CLI) | payer MEDICARE ==
[~2021-03-07] MED LIST changes: -LIDOCAINE 1% INJ 20 ML 20 ML VIAL INJ ONE; -LISI1TAB26 PO; +LISI1TAB48 PO
--- NOTE | 2021-03-07 15:15 | Diagnostic Imaging Report ---
INDICATION: Pain. EXAMINATION: Two views were obtained. FINDINGS: The alignment is normal. There is no fracture or dislocation. The visualized right lung is clear. Soft tissues are unremarkable. IMPRESSION: No acute fracture or dislocation. Dictated by: Dictated on workstation # [id number]
--- NOTE | 2021-03-07 16:28 | Diagnostic Imaging Report ---
INDICATION: Right arm pain. TIME OF EXAM: 2:41 PM. EXAMINATION: Three views of the right shoulder were obtained. FINDINGS: Glenohumeral and acromioclavicular alignment are normal. Acromiohumeral space is normal. No fracture or dislocation is identified. IMPRESSION: No acute abnormality is detected. Dictated by: Dictated on workstation # [id number]
== END ==
LOC: RAD 13:52
PROVIDERS: ATTEND Nurse Practitioner Family
DX: M25.511 Pain in right shoulder (principal); M79.621 Pain in right upper arm
CPT/HCPCS: 73030; 73060

== ENCOUNTER → 2021-04-01 | Outpatient (CLI) | payer MEDICARE ==
--- NOTE | 2021-04-01 10:23 | Diagnostic Imaging Report ---
Clinical indication: Patient is having right hand numbness and right shoulder pain. Exam: MRI of the cervical spine performed without IV contrast. Sequences include sagittal T1, sagittal T2, sagittal T2 fat-sat, sagittal flair, and axial T2. Comparison: MRI of the brain with and without contrast dated 05/16/2013. Findings: There is no significant change to the roughly 4 mm cystic-appearing structure involving the posterior aspect of the sella seen on sagittal T2 sequence. The configuration of this area is similar to prior MRI of the brain. There is a 5 mm x 4 mm x 6 mm (AP x Trans x CC) area of high T2 signal involving the right side of the cervical cord seen at the C5-C6 level. This area is just below the area of significant degenerative disease. There is no significant expansile changes of the cord seen. Remainder of the cervical spinal cord is unremarkable. There is no acute cervical spine fracture. There are degenerative spurs involving the cervical spine. There is ligament flavum buckling of the upper cervical spine which contributes to central canal stenosis. C1-C2: There are degenerative spurs involving the atlantoodontoid interval anteriorly. There is no significant central canal stenosis. C2-C3: There is ligament flavum buckling, moderate left facet arthropathy/hypertrophy and mild right facet arthropathy. There is moderate left neural foramen narrowing and no significant central canal or right neural foramen narrowing. There is moderate central canal stenosis. C3-C4: There is mild bilateral facet arthropathy. There is no significant disk bulge. There is mild ligamentum flavum buckling. There is moderate central canal stenosis. There is no significant posterior disk bulge. There is no significant neural foramen narrowing. C4-C5: There is small anterior disk bulge. There is mild bilateral facet arthropathy. There is mild ligament flavum buckling. There is mild central canal narrowing. There is at least mild left neural foramen narrowing and no significant right neural foramen narrowing. C5-C6: There is grade 1 retrolisthesis of C5 on C6. There is diffuse disk bulge with mild to moderate loss of disk space height. There are bilateral uncinate spurs. There is facet arthropathy and mild ligament flavum buckling. There is severe central canal stenosis, severe left neural foramen narrowing and at least mild right neural foramen narrowing. C6-C7: There is small annular tear involving the anterior aspect of this with no significant disk bulge. There is a small posterior disk bulge. There is mild to moderate bilateral facet arthropathy and ligamentum flavum buckling. There is moderate central canal stenosis and no significant neural foramen narrowing. C7-T1: There is subtle grade 1 anterolisthesis C7 on T1. There is mild bilateral facet arthropathy. There is no significant disk bulge. There is no significant central canal narrowing. There is mild bilateral neural foramen narrowing with left-sided more than the right. IMPRESSION: 1: There is a 6 mm area of intramedullary high T2 signal involving the right side of the cervical cord seen at the C5-C6 level. There is significant disk disease in this area and severe central canal stenosis at the C5-C6 level. There is no significant cord expansile changes. This cord signal abnormality may be related to cord contusion. MRI of the cervical spine with contrast is suggested to exclude enhancing lesion in this area. Otherwise future followup imaging of the cervical spine with and without contrast to evaluate for interval evolution of this finding is suggested. 2: There is moderate to severe multilevel cervical spine degenerative disease which is described above. Dictated by: Dictated on workstation # [id number]
== END ==
LOC: RAD 09:30
PROVIDERS: ATTEND Physician Assistant
DX: M43.13 Spondylolisthesis, cervicothoracic region (principal); M47.23 Other spondylosis with radiculopathy, cervicothoracic region; M50.121 Cervical disc disorder at C4-C5 level with radiculopathy; M48.03 Spinal stenosis, cervicothoracic region
CPT/HCPCS: 72141

== ENCOUNTER → 2021-11-01 | Outpatient (CLI) | payer MEDICARE ==
--- NOTE | 2021-11-01 11:23 | Diagnostic Imaging Report ---
TECHNIQUE: 3-D bilateral screening mammogram The current study was also evaluated with a Computer Aided Detection (CAD) system. COMPARISON: This study was compared to the prior exams of 10/05/2020 08/22/2019 and 02/05/2017. At this time, there are no current complaints. FINDINGS: The fibroglandular tissue in both breasts is heterogeneously dense. This does limit the sensitivity of this exam. Overall, there does not appear to have been any significant change when compared to the prior study. No primary or secondary sign of malignancy is noted. IMPRESSION: There is no radiographic evidence for malignancy. BI-RADS CATEGORY: 1. NEGATIVE. ACR BI-RADS Category 1: Negative. Result letter will be mailed to the patient. Note: At least 10% of breast cancer is not imaged by mammography. Dictated by: Dictated on workstation # [id number]
== END ==
LOC: RAD 08:49
PROVIDERS: ATTEND Internal Medicine
DX: Z12.31 Encounter for screening mammogram for malignant neoplasm of breast (principal)
CPT/HCPCS: 77063; 77067

== ENCOUNTER 2021-12-12 10:07 | Outpatient (CLI) | payer MEDICARE ==
[~2021-12-12] VITALS: Ht 162.6 cm; Wt 79.4 kg
[2021-12-12 10:11] VITALS: BP 159/64
[2021-12-12] MEDS ORDERED: BEBTELOVIMAB 175 MG/2 ML VIAL IV ONE (10:15)
[2021-12-12 10:47] VITALS: BP 136/56
== END 2021-12-12 10:52 | disposition home or self-care (01) ==
LOC: INFUSION 10:07
PROVIDERS: ATTEND Nurse Practitioner Family
DX: U07.1 COVID-19 (principal)

== ENCOUNTER → 2022-02-25 | Outpatient (CLI) | payer MEDICARE ==
--- NOTE | 2022-02-25 13:40 | Diagnostic Imaging Report ---
PROCEDURE: US Renal Bilateral. TECHNIQUE: Multiple real-time grayscale images were obtained over the kidneys in various projections bilaterally. INDICATION: Right renal cyst. Right kidney measures 11.1 x 4.6 x 3.9 cm the left kidney measures 13.2 x 4.6 x 4.8 cm. There is a cyst in the upper pole right kidney measuring 3.7 x 3.6 x 3.4 cm. There is a cyst in the lower pole of the left kidney measuring 3.9 x 3.5 x 3.1 cm. No internal vascularity is seen. No calculi are detected. There is no hydronephrosis. Both kidneys do show some cortical thinning bilaterally. Urinary bladder does demonstrate bilateral ureteral jets. IMPRESSION: Bilateral simple appearing renal cysts. There does appear to be some cortical thinning bilaterally but no calculi or hydronephrosis is detected. Dictated by: Dictated on workstation # [id number]
== END ==
LOC: RAD 09:14
PROVIDERS: ATTEND Internal Medicine
DX: N28.1 Cyst of kidney, acquired (principal)
CPT/HCPCS: 76770

== ENCOUNTER → 2022-05-05 | Outpatient (CLI) | payer MEDICARE | LOC: CARD 14:06 | PROVIDERS: ATTEND Nurse Practitioner Family | DX: I34.0 Nonrheumatic mitral (valve) insufficiency (principal) | CPT/HCPCS: 93306 ==

== ENCOUNTER → 2022-05-20 | Outpatient (CLI) | payer MEDICARE ==
[~2022-05-20] VITALS: Ht 162 cm; Wt 78.0 kg
[~2022-05-20] MED LIST changes: +REGADENOSON 0.4 MG/5 ML SYR (LEXISCAN) IV ONE
[2022-05-20] MEDS: CATHETER FLUSH 10 ML SYR IVP PRN ×3 (12:01→13:20)
[2022-05-20 13:19] VITALS: BP 146/70
--- NOTE | 2022-05-21 12:28 | STRESS TEST ---
DATE OF SERVICE: 05/20/2022 RESTING AND POST REGADENOSON TECHNETIUM-99M TETROFOSMIN SPECT CT IMAGING ORDERING PHYSICIAN: Ruchi Hutson APRN CLINICAL DIAGNOSIS: Chest discomfort. Baseline images were carried out after injection of 10.48 mCi of technetium-99m tetrofosmin. This was followed by 0.4 mg regadenoson and 29.6 mCi of technetium-99m tetrofosmin for stress imaging. The electrocardiogram showed sinus rhythm with incomplete right bundle branch block pattern. This did not change significantly with the regadenoson infusion. The patient tolerated the procedure well. Review of images at rest and following stress does not indicate any distinct perfusion defects consistent with significant myocardial ischemia or infarction. Gated images show normal global left ventricular systolic function with normal regional wall motion. Left ventricular ejection fraction is calculated to be 79%. CONCLUSIONS: 1. No evidence of significant myocardial ischemia or infarction on this study. 2. Normal regional wall motion. 3. Normal global left ventricular systolic function with a calculated ejection fraction 79%. Job ID: [id number] DocumentID: [id number] Dictated Date: 05/21/2022 09:51:57 Business Services Intern Date: 05/21/2022 12:26:00 Dictated By: CHUCK BORJAS MD; CEE; FACP; MADINAC; RENETTA
== END ==
LOC: CARD 11:47
PROVIDERS: ATTEND Nurse Practitioner Family
DX: R07.89 Other chest pain (principal)
CPT/HCPCS: 78452; 93017; A9502